=== PATIENT | female | born 1935 | race Two or more races ===

== ENCOUNTER → 2016-05-27 | Outpatient (CLI) | payer MEDICARE, MEDICAID ==
--- NOTE | 2016-05-27 11:39 | RADRPT ---
PROCEDURE: XR left knee. CLINICAL INDICATION: Knee pain TECHNIQUE: AP weightbearing, PA weightbearing, lateral weightbearing and sunrise views are availab le for review. COMPARISON: None available FINDINGS: There is severe osteoarthrosis involving the medial tibial femoral compartment, moderate to severe o steoarthrosis involving the lateral tibial femoral compartment and mild to moderate osteoarthrosis i nvolving the patellofemoral compartment. This is associated with joint space narrowing, subchondral sclerosis and osteophytosis. There is a small suprapatellar joint effusion. There is otherwise normal mineralization, architecture and alignment. No fractures are identified. No osseous lesions are identified. The soft tissues are unremarkable. IMPRESSION: Severe osteoarthrosis involving the medial tibial femoral compartment, moderate to severe osteoarthr osis involving the lateral tibial femoral compartment and mild to moderate osteoarthrosis involving the patellofemoral compartment. Small suprapatellar joint effusion RPTAT: HGDB .Johann Hernandez MD, Date Time Electronically viewed and signed by .Johann Hernandez MD, on 05/27/2016 11:39 .B/
== END | disposition home or self-care (01) ==
LOC: HKI 10:44
PROVIDERS: ATTEND Orthopaedic Surgery
DX: M17.0 Bilateral primary osteoarthritis of knee (principal)
CPT/HCPCS: 73564; G0463

== ENCOUNTER → 2016-06-26 | Outpatient (CLI) | payer MEDICARE, MEDICAID ==
--- NOTE | 2016-06-26 16:22 | RADRPT ---
PROCEDURE: Limited x-ray of both lower extremities. CLINICAL INDICATION: Bilateral leg pain. TECHNIQUE: Single frontal view of both lower extremities was obtained from the hips to the calves. COMPARISON: None. FINDINGS: There are mild degenerative changes of the hips with osteophytes noted. There are degenerative oconnor ges of the lower lumbar spine with disk space narrowing and osteophytes. There are severe degenerat ko changes of both knees with osteophytes, medial joint compartment narrowing, subarticular scleros is, deformity, and bilateral varus deformity. Right is worse than left. IMPRESSION: 1. Degenerative changes of the hips and knees as described above. RPTAT: QQ .Castro Wallace MD, MD Date Time Electronically viewed and signed by .Castro Wallace MD, on 06/26/2016 16:22 .R/
== END | disposition home or self-care (01) ==
LOC: HKI 10:24
PROVIDERS: ATTEND Orthopaedic Surgery
DX: Z01.818 Encounter for other preprocedural examination (principal); M17.0 Bilateral primary osteoarthritis of knee; M25.562 Pain in left knee
CPT/HCPCS: 77073; G0463

== ENCOUNTER 2016-07-02 06:46 | Inpatient (IN) | payer MEDICARE, OTHER ==
[2016-07-02] VITALS (24 sets, daily range): BP systolic 81–156; BP diastolic 58–98; PULSE 76–119; RESP 12–23; Ht 149.9 cm; Wt 75.0 kg
[~2016-07-02] VITALS: Ht 149.9 cm; Wt 75.0 kg
[2016-07-02] MEDS ORDERED: LIDOCAINE 2% (SDV) 5 ML INJ ONE (07:00)
[2016-07-02] MEDS ORDERED: PROPOFOL 200 MG INJ ONE (07:00)
[2016-07-02] MEDS ORDERED: DEXL60CA2 PO (07:43)
[2016-07-02] MEDS ORDERED: FESO4TAB PO (07:43)
[2016-07-02] MEDS ORDERED: VALS160T20 PO (07:44)
[2016-07-02] MEDS ORDERED: CELE200C PO (07:44)
[2016-07-02] MEDS ORDERED: CLON-429 PO (07:45)
[2016-07-02] MEDS ORDERED: DOCU-144 PO (07:46)
[2016-07-02] MEDS ORDERED: TRAM-40 PO (07:47)
[2016-07-02] MEDS ORDERED: ACET-141 PO (07:49)
[2016-07-02] MEDS ORDERED: PROP30DR BOTH EYES (07:49)
[2016-07-02] MEDS ORDERED: PREG50CA PO (07:50)
[2016-07-02] MEDS ORDERED: MULTI PO (07:50)
[2016-07-02] MEDS ORDERED: POLY17PO6 PO (07:52)
[2016-07-02] MEDS ORDERED: DICL100G37 TOP (07:52)
[2016-07-02] MEDS ORDERED: ZOLP5TAB PO (07:53)
[2016-07-02] MEDS ORDERED: PREGABALIN 300 MG PO X1 PO ONE (08:30)
[2016-07-02] MEDS ORDERED: TRANEXAMIC ACID 680 MG in SOD CHLORIDE 0.9% 93.2 ML IV ONE (08:30)
[2016-07-02] MEDS ORDERED: CELECOXIB 400 MG PO X1 DOSE PO ONE (08:30)
[2016-07-02] MEDS ORDERED: oxyCODONE (CR) 10 MG TAB [oxyCONTIN] X1 DOSE PO ONE (08:30)
[2016-07-02] MEDS ORDERED: CEFAZOLIN 2GM/50 ML (PMX) 50 ML X1 BEFORE INCISION IVPB ONE (08:30)
[2016-07-02] MEDS: LACTATED RINGER'S 1,000 ML IV SCH ×2 (08:30→18:30)
[2016-07-02] MEDS ORDERED: traMADOL 50 MG TAB X 1 DOSE PO ONE (08:30)
[2016-07-02] MEDS ORDERED: ROCURONIUM 50 MG INJ ONE (08:45)
[2016-07-02] MEDS ORDERED: MIDAZOLAM 1 MG/ML 2 ML INJ ONE (08:45)
[2016-07-02] MEDS ORDERED: FENTAnyl 50 MCG/ML VIAL ONE (08:45)
[2016-07-02] MEDS ORDERED: ONDANSETRON 4 MG INJ ONE (08:45)
[2016-07-02] MEDS ORDERED: GLYCOPYRROLATE 0.4 MG INJ ONE (08:45)
[2016-07-02] MEDS ORDERED: CEFAZOLIN 1 GM INJ ONE ×2 (08:45→11:20)
[2016-07-02] MEDS ORDERED: NEOSTIGMINE 3 MG/3 ML SYRINGE ONE (08:45)
[2016-07-02] MEDS ORDERED: DEXAMETHASONE 4 MG/ML 1 ML INJ ONE (08:45)
--- NOTE | 2016-07-02 09:54 | HPN ---
Date/Time of Note Date/Time of Note DATE: 07/02/16 TIME: 09:54 Interval H&P Admission Note Pt. seen H&P reviewed: No system changes No change from H&P on 06/25/16 by PATY Vera MD Jul 02, 2016 09:54
[2016-07-02] MEDS ORDERED: POLYMYXIN B 500000 UNIT INJ ONE (09:56)
[2016-07-02] MEDS ORDERED: SODIUM CL BACTERIOSTATIC 30 ML INJ ONE (09:56)
[2016-07-02] MEDS ORDERED: VANCOMYCIN 1 GM INJ ONE (09:56)
[2016-07-02] MEDS ORDERED: EXPAREL NOTE (BUPIVICAINE LIPOSOMAL) XX SCH (10:00)
[2016-07-02] MEDS ORDERED: TRANEXAMIC ACID 680 MG in SOD CHLORIDE 0.9% 100 ML IVPB ONE (10:00)
[2016-07-02] MEDS ORDERED: BUPIVACAINE LIPOSOME/PF 266 MG/20 ML VIAL INFIL ONE (10:00)
[2016-07-02] MEDS ORDERED: PAIN COCKTAIL-CEFUROXIME IRR ONE ×7 (10:00)
[2016-07-02] MEDS ORDERED: PROPOFOL 100 ML ONE (11:11)
[2016-07-02] MEDS ORDERED: LABETALOL HCL 20MG INJ IV PRN (11:30)
[2016-07-02] MEDS ORDERED: DIPHENHYDRAMINE 50 MG INJ IV PRN (11:30)
[2016-07-02] MEDS ORDERED: HYDROmorphONE (0.2 MG/ML) 10ML SYG IV PRN ×3 (11:30)
[2016-07-02] MEDS ORDERED: FENTAnyl 50 MCG/ML VIAL IV PRN ×3 (11:30)
[2016-07-02] MEDS ORDERED: TRIMETHOBENZAMIDE 100 MG/ML VIAL IM PRN (11:30)
[2016-07-02] MEDS ORDERED: ONDANSETRON 4 MG INJ IV PRN ×2 (11:30→13:30)
[2016-07-02] MEDS ORDERED: MIDAZOLAM 1 MG/ML 2 ML INJ IV PRN (11:30)
[2016-07-02] MEDS ORDERED: hydrALAzine 20 MG INJ IV PRN (11:30)
[2016-07-02] MEDS ORDERED: MEPERIDINE 25 MG INJ IV PRN (11:30)
[2016-07-02] MEDS ORDERED: EPHEDrine SULFATE 50 MG/5 ML SYG IV PRN (11:30)
[2016-07-02] MEDS ORDERED: PHENYLephrine (100 MCG/ML) 5ML SYG ONE (12:46)
--- NOTE | 2016-07-02 13:24 | OPR ---
Date/Time of Note Date/Time of Note DATE: 07/02/16 TIME: 13:23 Operative Report Free Text/Dictation Dictatin # [id number] Procedure Date: Jul 02, 2016 Preoperative Diagnosis Left Knee OA Postoperative Diagnosis Same Operation Performed Left TKA Surgeon: PATY PARKER MD assistant oceanographer: MELANIA CRAIN PA-C Anesthesia: general, spinal Anesthesiologist: Tom Gayle M.D. Tourniquet Time: 92 min Estimated Blood Loss: 50 - 100 ml's Specimens Bone and soft tissue Tubes/Drains Hemovac x 1 Complications: None Pt Condition Post Procedure: stable Disposition: PACU PATY PARKER MD Jul 02, 2016 13:24
[2016-07-02] MEDS ORDERED: MAGNESIUM HYDROXIDE 30ML CUP PO PRN (13:30)
[2016-07-02] MEDS ORDERED: BISACODYL 10 MG SUPP PR PRN (13:30)
[2016-07-02] MEDS ORDERED: DIPHENHYDRAMINE 25 MG CAP PO PRN (13:30)
[2016-07-02] MEDS ORDERED: NA PHOSPHATE/BIPHOS 133 ML ENEMA PR PRN (13:30)
[2016-07-02] MEDS ORDERED: oxyCODONE 5 MG TAB PO PRN ×2 (13:30)
[2016-07-02] MEDS ORDERED: clonAZEPAM 0.5 MG TAB PO PRN (13:30)
[2016-07-02] MEDS ORDERED: NACL 0.9% 3 ML SYG IV SCH (13:30)
[2016-07-02] MEDS ORDERED: ASPIRIN (EC) 325 MG TAB PO ONE (13:30)
[2016-07-02] MEDS ORDERED: HYDROmorphONE 1 MG/ML SYG IV PRN (13:30)
--- NOTE | 2016-07-02 13:44 | PN ---
Date/Time of Note Date/Time of Note DATE: 07/02/16 TIME: 13:41 Assessment/Plan Lines/Catheters IV Catheter Type (from Nrsg): Peripheral IV Assessment/Plan Assessment/Plan Stable in PACU, s/p left TKA -continue abx until drain removed -pain meds as needed -ASA/SCDs -continue levaquin for URI treated pre-operatively -OOB with PT -monitor drain -check AM labs -d/c maya in AM XR of the left knee show good alignment with no fracture or dislocation identified Subjective 24 Hr Interval Summary Stable in PACU. Moving all extremities. Denies pain. Drowsy from anesthesia. Exam/Review of Systems Vital Signs Vitals Vital Signs Date Time Temp Pulse Resp B/P Pulse Ox O2 Delivery O2 Flow Rate FiO2 07/02/16 08:46 98.3 76 18 149/ 98 Room Air Exam Free Text/Dictation Hemovac: minimal Dressing dry Incision clean, dry, and intact without redness or drainage Thigh soft 5/5 Quadriceps, Tibialis Anterior, EHL, Gastroc, Soleus, Peroneals Normal sensation Palpable DT/PT, CR <2 sec No distal edema MELANIA CRAIN PA-C Jul 02, 2016 13:43
[2016-07-02] MEDS ORDERED: BACITRACIN 50000 UNITS INJ ONE (13:48)
[2016-07-02] MEDS: traMADol 50 MG TAB PO SCH ×2 (14:12→18:37)
[2016-07-02] MEDS: CEFAZOLIN 2 GM/50 ML (PMX) 50 ML IVPB SCH ×2 (14:13→21:25)
[2016-07-02 15:11] LABS: HEMATOCRIT 40.8 % (37.0-47.0); HEMOGLOBIN 12.6 g/dl (12.0-16.0)
--- NOTE | 2016-07-02 15:17 | RADRPT ---
PROCEDURE: XR Left Knee. CLINICAL INDICATION: Left knee pain. Postop. TECHNIQUE: Two views. Frontal and lateral. COMPARISON: 05/27/2016. FINDINGS: There is no fracture or dislocation. Anterior skin felisa and surgical drains are noted. There is gas in the soft tissues from the rece nt surgery. There is a total left knee arthroplasty which appears satisfactory. There is no lytic or blastic lesion. There is no joint effusion. IMPRESSION: 1. Satisfactory postoperative appearance of the left knee. RPTAT: QQ .Castro Wallace MD, MD Date Time Electronically viewed and signed by .Castro Wallace MD, MD on 07/02/2016 15:17 .R/
[2016-07-02 15:34] LABS: CREATININE 0.76 mg/dl (0.44-1.00); POTASSIUM 3.5 mmol/L (3.5-5.1)
[2016-07-02 15:35] LABS: CALCIUM 8.7 mg/dl (8.4-10.2)
[2016-07-02] MEDS ORDERED: TRANEXAMIC ACID 750 MG in SOD CHLORIDE 0.9% 100 ML IVPB ONE ×2 (16:30→19:30)
[2016-07-02] MEDS ORDERED: METOPROLOL 5 MG INJ IV ONE (16:30)
--- NOTE | 2016-07-02 18:27 | CONS ---
DATE OF ADMISSION: 07/02/2016 DATE OF CONSULTATION: 07/02/2016 TYPE OF CONSULTATION: POSTOPERATIVE MEDICAL CONSULTATIVE NOTE Dear Dr. Borjas: Thank you very much for allowing me to evaluate this 81-year-old female who just underwent left knee replacement. HISTORICAL EVENTS: As you well know, this patient has had progressive disabling pain involving her left knee and for this elected to proceed with surgery today. In recovery, she has comfortable and per staff, not complaining of shortness of breath, chest pain or abdominal pain. PAST MEDICAL HISTORY: Includes: 1. History of thyrotoxicosis. 2. Hypothyroidism. 3. Hypertension. 4. Hyperlipidemia. MEDICATIONS: Prior to admission: 1. Celebrex 200 per day. 2. Toviaz 4 mg per day. 3. Valsartan 160 day. 4. Klonopin 0.5 b.i.d. 5. Ambien 5 at bedtime p.r.n. 6. Xanax 0.25 p.r.n. FAMILY HISTORY: Positive for heart disease. PHYSICAL EXAMINATION: GENERAL: Comfortable-appearing female in no acute distress. VITAL SIGNS: BP 128/80, pulse 70, respirations 20, she was afebrile. EYES: Extraocular muscles were full. NOSE, MOUTH, AND THROAT: Normal. NECK: Supple. There was no jugular venous distention, thyroid enlargement or adenopathy. Carotids 2+, no bruits. LUNGS: Clear. HEART: Rhythm regular, no murmur. No third or fourth sound. ABDOMEN: Nontender. Liver and spleen were not palpable. No masses or tenderness were noted. EXTREMITIES: No edema. NEUROLOGIC: No lateralizing motor weakness. IMPRESSION: 1. Stable postop left knee replacement. 2. History of hypertension. We will continue angiotensin II receptor blockers and monitor blood pr essure throughout. PLAN: Will evaluate daily for signs and symptoms of thromboembolic disease despite appropriate deep venous thrombosis prophylaxis. Dictated By: JACKY COLEY/VMIAL Conf#: [id number] DID#: [id number]
[2016-07-02] MEDS: PANTOPRAZOLE (EC) 40 MG TAB PO SCH (18:37)
[2016-07-02] MEDS: ACETAMINOPHEN 1000MG/100ML IV 100 ML IVPB SCH ×2 (18:37→23:59)
[2016-07-02] MEDS: DOCUSATE SODIUM 100 MG CAP PO SCH ×2 (21:00→21:24)
[2016-07-02] MEDS: PREGABALIN 50 MG CAP PO SCH (21:24)
[2016-07-02] MEDS: VALSARTAN 160 MG TAB PO SCH (21:25)
[2016-07-03 00:09] VITALS: BP 113/63; RESP 18
[2016-07-03] MEDS: FESOTERODINE FUMARATE 4 MG XX SCH ×2 (00:30→19:30)
[2016-07-03] MEDS: [UNRECOGNIZED DRUG - OTHER] XX SCH ×2 (00:30→19:30)
[2016-07-03] MEDS: LACTATED RINGER'S 1,000 ML IV SCH ×7 (04:00→21:14)
[2016-07-03 05:20] LABS: HEMATOCRIT 34.9 % (37.0-47.0); HEMOGLOBIN 11.5 g/dl (12.0-16.0)
[2016-07-03 05:30] LABS: POTASSIUM 4.6 mmol/L (3.5-5.1)
[2016-07-03 05:33] LABS: CREATININE 0.71 mg/dl (0.44-1.00)
[2016-07-03] MEDS: traMADol 50 MG TAB PO SCH ×4 (05:33→18:40)
[2016-07-03] MEDS: CEFAZOLIN 2 GM/50 ML (PMX) 50 ML IVPB SCH (05:33)
[2016-07-03] MEDS: PANTOPRAZOLE (EC) 40 MG TAB PO SCH ×2 (05:33→18:40)
[2016-07-03 05:34] LABS: CALCIUM 8.5 mg/dl (8.4-10.2)
[2016-07-03 05:37] VITALS: BP 124/64; PULSE 92; RESP 18
[2016-07-03] MEDS: ACETAMINOPHEN 1000MG/100ML IV 100 ML IVPB SCH ×2 (06:06→14:23)
--- NOTE | 2016-07-03 06:55 | OPR ---
DATE OF OPERATION: 07/02/2016 PREOPERATIVE DIAGNOSIS: Left knee osteoarthritis. POSTOPERATIVE DIAGNOSIS Left knee osteoarthritis. OPERATION PERFORMED: Left Total knee arthroplasty. SURGEON: Paty Borjas MD PATIENT CASE MANAGER: RIGO Gutierrez COMPONENTS USED: DePuy Attune size 5 narrow femoral component, size 3 tibial baseplate, 8 mm polyethylene insert, and a 32 patellar button. ANESTHESIA: Spinal plus general endotracheal intubation, plus periarticular injection. ANESTHESIOLOGIST: Dr. Gayle TOURNIQUET TIME: 92 minutes. ESTIMATED BLOOD LOSS: 50 mL INTRAVENOUS FLUIDS: 2 liters of crystalloid. SPECIMENS: Bone and soft tissue. DRAINS: Hemovac x1. COMPLICATIONS: None. DISPOSITION: The patient tolerated the procedure well and was taken to the recovery room in stable condition. INDICATIONS: The patient is an 81-year-old woman who has had progressive worsening pain in the left knee with radiographic evidence of severe osteoarthritis. She has failed nonsurgical means of treatment to control her pain, including activity modifications, pain medications, intra-articular injections and ambulatory assist devices. Despite these measures, she has had worsening pain and I felt she would benefit from a total knee arthroplasty. The risks, benefits, and alternatives of the procedure were explained in detail to the patient. I explained the risks of the surgery to include but not be limited to, bleeding and possible need for blood transfusion; infection; pain; stiffness; neurovascular injury with possible numbness, weakness, and/or paralysis anywhere from the knee down to the toes; fracture; instability; dislocation; wear and/or loosening of the prosthesis and possible need for future revision; blood clots; pulmonary embolism; and anesthetic complications such as heart attack, stroke, GI bleed, pneumonia, and/or . Ample time was allowed for the patient to ask questions, all of which were addressed and answered. The patient understood the risks involved and wished to proceed. Informed consent was signed prior to the procedure. PROCEDURE: The patient's left knee was initialed with a marking pen in the preoperative area to identify the correct operative site. The patient was brought to the operating room and transferred from the [facility] to the operating table where a spinal anesthetic was administered. The patient was then anesthetized and intubated. A Grossman catheter was placed. A timeout was performed to confirm that the left leg was the correct operative site. The patient was given 2 g of Ancef within one hour prior to the procedure. A tourniquet was placed on the operative proximal thigh. The operative knee and lower extremity were prepped and draped in the usual sterile fashion. The operative lower extremity was elevated and exsanguinated with an Esmarch tourniquet. The proximal thigh tourniquet was inflated to 300 mmHg. The knee was flexed. A midline incision was made and carried down through the subcutaneous tissue and fat with sharp dissection. Limited medial and lateral flaps were raised. A median parapatellar arthrotomy approach was performed. Synovial fluid was normal in color and consistency. The patella was everted and the knee flexed. There were severe tricompartmental osteoarthritic changes noted. A medial release was performed at the joint line to the midcoronal plane. The ACL and PCL and remnants of the menisci were excised. The stepped drill was used to open up the femoral canal which was irrigated and sucked dry. The distal femoral cut was made using the [employer] computer navigation system for a 0 degree varus/valgus cut and 3 degrees of flexion. The tibia was subluxed anteriorly. The [employer] tibial cutoff jig was placed over the tibia and set for a 0 degree varus/valgus cut and 3 degrees of posterior slope. The guide was pinned into place and the oscillating saw was used to make the cut. The tibia was sized. The extension gap was checked and accommodated a 8 mm spacer block with the knee in full extension. There was no varus or valgus instability. At this point, the femur was sized with the posterior referencing guide. Two holes were drilled in 3 degrees of external rotation. The two holes were in line with the transepicondylar axis, perpendicular to [place]'s line, and in line with the tibial cutoff jig brought up with the knee flexed 90 degrees and tensed with 2 lamina spreaders, suggesting the femoral rotation was correct. The four-in-one cutting block was pinned into place. The anterior and posterior cuts and chamfer cuts were made with the oscillating saw. The flexion gap was checked and accommodated the 8 mm spacer block at 90 degrees. There was no varus or valgus instability, suggesting the flexion and extension gaps were now equal. The central box was cut out on the femur. The tibia was drilled and punched in proper rotation. Trial components were placed into position with a trial insert. The patella was cut down to 13 mm and sized. Three holes were drilled and the trial button placed in position. With all the trials now in place, the knee was taken through range of motion and came to full extension as evidenced by the fact that with the foot on my abdomen and axial loading, there was no tendency for the knee to flex. The knee was able to be flexed to 125 degrees with good patellar tracking with no lateral tilt or subluxation. At this point , I was satisfied with the overall range of motion, stability, and patellar tracking. The trials were removed. The real components were opened. Two bags of cement were mixed, one with and one without premixed antibiotic. The knee was irrigated with antibiotic saline and sucked dry. Once the cement was in a doughy stage, the real components were cemented into place. The knee was held in full extension, and the patellar component was held with a patellar clamp. All excess cement was removed with curettes. As the cement was hardening, the synovial/capsular layer was infiltrated with a mixture of 150 mg of 0.5% Bupivacaine, 8 mg of Duramorph, 300 mcg of epinephrine, 30 mg of Toradol, 100 mcg of clonidine, 750 mg of cefuroxime and 86 mL of normal saline, followed by an injection of 266 mg of liposomal Bupivacaine. A Hemovac drain was placed in the deep portion of the wound and brought out the anterolateral thigh. Once the cement was completely hardened, the trial liner was removed, and the real insert was opened. The tourniquet was let down, and there was good hemostasis. The knee was then irrigated with a mixture of Betadine/saline and then antibiotic saline with pulsatile lavage. The real insert was impacted into the tibia and reduced onto to the femur. The arthrotomy was closed with a few interrupted #1 Ethibond in a figure-of- eight fashion, and then closed in a watertight fashion with a running #2 Stratafix suture. Knee flexion was checked against gravity and came to 125 degrees. The subcutaneous layer was irrigated and closed with 2-0 Stratafix, and then 3-0 Vicryl and then felisa on the skin. The wound was covered with an occlusive dressing, and secured with cast padding and a bias dressing. The drain was secured with 3-0 nylon. The sponge and needle counts were correct at the end of the case. The patient was then awakened, extubated, and taken to the recovery room in stable condition. Dictated By: PATY KRAMER/VIMAL Conf#: [id number] DID#: [id number] MTDD
[2016-07-03 08:08] VITALS: BP_SYST 137; BP_SYST 145; BP_DIAS 67; RESP 20
--- NOTE | 2016-07-03 08:39 | PN ---
Date/Time of Note Date/Time of Note DATE: 07/03/16 TIME: 08:38 Assessment/Plan Lines/Catheters IV Catheter Type (from Nrsg): Peripheral IV Grossman in Place (from Nrsg): Yes Assessment/Plan Assessment/Plan Stable POD #1, s/p left TKA -d/c abx -drain removed -pain meds as needed -ASA/SCDs for DVT prophylaxis -OOB with PT -check AM labs -d/c planning. Will plan to go to [facility] upon discharge Subjective 24 Hr Interval Summary No acute overnight events. Denies any knee pain. Did not start PT yesterday. VSS , afebrile. Will plan to go to [facility] upon discharge. Exam/Review of Systems Vital Signs Vitals Vital Signs Date Time Temp Pulse Resp B/P Pulse Ox O2 Delivery O2 Flow Rate FiO2 07/03/16 08:08 97.6 87 20 137/67 98 07/03/16 05:37 Nasal Cannula 2.0 Intake and Output 07/02/16 07/02/16 07/03/16 15:00 23:00 07:00 Intake Total 2200 ml 157.5 ml 1930 ml Output Total 400 ml 30 ml 1210 ml Balance 1800 ml 127.5 ml 720 ml Exam Free Text/Dictation Hemovac: 40cc Dressing dry Incision clean, dry, and intact without redness or drainage Thigh soft 5/5 Quadriceps, Tibialis Anterior, EHL, Gastroc, Soleus, Peroneals Normal sensation Palpable DT/PT, CR <2 sec No distal edema Results Result Diagram: 07/03/16 0455 07/03/16 0455 MELANIA CRAIN PA-C Jul 03, 2016 08:39
--- NOTE | 2016-07-03 08:50 | CONS ---
Date/Time of Note Date/Time of Note DATE: 07/03/16 TIME: 08:48 Assessment/Plan Assessment/Plan Additional Assessment/Plan 1. Doing well post op left knee replacement, labs rev 2. BP is well controlled Consultation Date/Type/Reason Admit Date/Time Jul 02, 2016 at 06:46 Initial Consult Date Detailed Summary Respiratory: No shortness of breath Cardiovascular: No chest pain Gastrointestinal: no complaints Genitourinary: other (maya in place) Musculoskeletal: bone/joint pain (no pain left knee) Exam/Review of Systems Vital Signs Vitals Vital Signs Date Time Temp Pulse Resp B/P Pulse Ox O2 Delivery O2 Flow Rate FiO2 07/03/16 08:08 97.6 87 20 137/67 98 07/03/16 05:37 Nasal Cannula 2.0 Intake and Output 07/02/16 07/02/16 07/03/16 14:59 22:59 06:59 Intake Total 2200 ml 157.5 ml 1930 ml Output Total 400 ml 30 ml 1210 ml Balance 1800 ml 127.5 ml 720 ml Exam Neck: No jvd Respiratory: clear to auscultation Cardiovascular: regular rate and rhythm Gastrointestinal: soft Extremities: No edema (adn no calf tend) Results Result Diagram: 07/03/16 0455 07/03/16 0455 Results 24 hrs Laboratory Tests Test 07/02/16 13:58 07/03/16 04:55 Hemoglobin 12.6 11.5 L Hematocrit 40.8 34.9 L Sodium Level 143 136 Potassium Level 3.5 4.6 Chloride Level 107 105 Carbon Dioxide Level 22 25 Anion Gap 18 H 11 # Blood Urea Nitrogen 15 12 Creatinine 0.76 0.71 Glucose Level 153 126 Calcium Level 8.7 8.5 Medications Medications Current Medications Lactated Ringer's (Lr) 1,000 ml @ 100 mls/hr Q10H IV Last administered on 08:30; Admin Dose 100 MLS/HR; Start 07/02/16 at 08:30 Miscellaneous Information 1 ea NOTE XX ; Start 07/02/16 at 10:00; Stop 07/06/16 at 09:59 Clonazepam (Klonopin) 0.5 mg BID PRN PO ANXIETY; Start 07/02/16 at 13:30 Docusate Sodium (Colace) 100 mg BID PO Last administered on 07/02/16 21:24; Admin Dose 100 MG; Start 07/02/16 at 21:00 Valsartan 160 mg 160 mg BID PO Last administered on 07/02/16 21:25; Admin Dose 160 MG; Start 07/02/16 at 21:00 Lactated Ringer's (Lr) 1,000 ml @ 125 mls/hr Q8H IV Last administered on 04:00; Admin Dose 125 MLS/HR; Start 07/02/16 at 13:14 Celecoxib 200 mg 200 mg DAILY PO ; Start 07/03/16 at 09:00 Acetaminophen (Ofirmev 1000mg/ 100ml Iv) 100 ml @ 400 mls/hr Q6 IVPB Last administered on 07/03/16 06:06; Admin Dose 400 MLS/HR; Start 07/02/16 at 18:00; Stop 07/03/16 at 17:59 Tramadol HCl (Ultram) 50 mg Q6 PO Last administered on 07/03/16 05:33; Admin Dose 50 MG; Start 07/02/16 at 12:00; Stop 07/05/16 at 11:59 Oxycodone HCl (Roxicodone) 5 mg Q4H PRN PO PAIN LEVEL 1-3; Start 07/02/16 at 13: 30 Oxycodone HCl (Roxicodone) 10 mg Q4H PRN PO PAIN LEVEL 4-7; Start 07/02/16 at 13 :30 Hydromorphone HCl (Dilaudid) 1 mg Q3H PRN IV PAIN LEVEL 8-10; Start 07/02/16 at 13:30 Ondansetron HCl (Zofran Inj) 4 mg Q6H PRN IV NAUSEA AND/OR VOMITING; Start 07/02 at 13:30 Bisacodyl (Dulcolax Supp) 10 mg Q12H PRN [place] CONSTIPATION; Start 07/02/16 at 13: 30 Magnesium Hydroxide (Milk Of Mag) 30 ml BID PRN PO CONSTIPATION; Start 07/02/16 at 13:30 Sodium Biphosphate/ Sodium Phosphate (Fleet Enema) 133 ml DAILY PRN [place] CONSTIPATION; Start 07/02/16 at 13:30 Docusate Sodium (Colace) 100 mg BID PO ; Start 07/02/16 at 21:00 Diphenhydramine HCl (Benadryl) 25 mg Q6H PRN PO PRURITUS; Start 07/02/16 at 13: 30 Aspirin (Ecotrin) 325 mg BID PO ; Start 07/03/16 at 09:00 Pantoprazole (Protonix Tab) 40 mg BID@06,18 PO Last administered on 07/03/16 05 :33; Admin Dose 40 MG; Start 07/02/16 at 18:00 Pregabalin (Lyrica) 50 mg BID PO Last administered on 07/02/16 21:24; Admin Dose 50 MG; Start 07/02/16 at 21:00 Levofloxacin (Levaquin) 500 mg DAILY@06 PO ; Start 07/03/16 at 09:00; Stop at 05:59 Miscellaneous Information (*Order Clarification Bulletin) (Fesoterodine Fumarate (Toviaz... Q8H XX ; Start 07/02/16 at 16:30 JACKY NELSON MD Jul 03, 2016 08:50
[2016-07-03] MEDS ORDERED: FESOTERODINE FUMARATE 4 MG PO SCH (09:00)
[2016-07-03] MEDS: DOCUSATE SODIUM 100 MG CAP PO SCH ×4 (09:00→20:50)
[2016-07-03] MEDS ORDERED: NON-FORMULARY/PATIENT OWN MED (Dexlansoprazole (Dexilant) 60 MG) PO SCH (09:00)
[2016-07-03] MEDS: ASPIRIN (EC) 325 MG TAB PO SCH ×2 (09:28→20:50)
[2016-07-03] MEDS: PREGABALIN 50 MG CAP PO SCH ×2 (09:28→20:49)
[2016-07-03] MEDS: VALSARTAN 160 MG TAB PO SCH ×2 (09:29→20:49)
[2016-07-03] MEDS: CELECOXIB 200 MG CAP PO SCH (09:29)
[2016-07-03] MEDS: LEVOFLOXACIN 500 MG TAB PO SCH (09:32)
[2016-07-03 11:36] LABS: ADD UMIC YES; URINE BILIRUBIN (Dip) NEGATIVE (NEGATIVE); URINE BLOOD (Dip) 3+ (NEGATIVE); URINE COLOR LT. YELLOW (YELLOW); URINE GLUCOSE (Dip) NEGATIVE (NEGATIVE); URINE KETONES (Dip) NEGATIVE (NEGATIVE); URINE LEUKOCYTE ESTERASE (Dip) NEGATIVE (NEGATIVE); URINE NITRITE (Dip) NEGATIVE (NEGATIVE); URINE TOTAL PROTEIN (Dip) NEGATIVE (NEGATIVE); URINE UROBILINOGEN (Dip) 0.2 E.U./dL (0.1-1.0)
[2016-07-03 19:56] VITALS: BP 132/63; RESP 20
[2016-07-04] MEDS: LACTATED RINGER'S 1,000 ML IV SCH ×2 (00:30→05:14)
[2016-07-04] MEDS: FESOTERODINE FUMARATE 4 MG XX SCH ×3 (00:30→16:30)
[2016-07-04] MEDS: [UNRECOGNIZED DRUG - OTHER] XX SCH ×3 (00:30→16:30)
[2016-07-04] MEDS: traMADol 50 MG TAB PO SCH ×5 (00:43→23:26)
[2016-07-04] MEDS: LEVOFLOXACIN 500 MG TAB PO SCH (05:34)
[2016-07-04] MEDS: PANTOPRAZOLE (EC) 40 MG TAB PO SCH ×2 (05:34→18:23)
[2016-07-04 08:21] LABS: HEMATOCRIT 35.3 % (37.0-47.0); HEMOGLOBIN 11.3 g/dl (12.0-16.0)
[2016-07-04 08:23] VITALS: BP 122/74; RESP 18
[2016-07-04 08:43] LABS: CALCIUM 8.5 mg/dl (8.4-10.2); CREATININE 0.84 mg/dl (0.44-1.00)
[2016-07-04] MEDS: DOCUSATE SODIUM 100 MG CAP PO SCH ×4 (09:00→20:58)
[2016-07-04] MEDS: PREGABALIN 50 MG CAP PO SCH ×2 (09:47→23:27)
[2016-07-04] MEDS: CELECOXIB 200 MG CAP PO SCH (09:48)
[2016-07-04] MEDS: ASPIRIN (EC) 325 MG TAB PO SCH ×2 (09:48→20:55)
[2016-07-04] MEDS: VALSARTAN 160 MG TAB PO SCH ×2 (09:49→20:56)
--- NOTE | 2016-07-04 12:20 | CONS ---
Date/Time of Note Date/Time of Note DATE: 07/04/16 TIME: 12:18 Assessment/Plan Assessment/Plan Additional Assessment/Plan 1. Doing well post op left knee replacement, labs rev 2. BP is well controlled 3. K+ sl inc, will dc celebrex 4. UTI is not present so will dc levaquin Consultation Date/Type/Reason Admit Date/Time Jul 02, 2016 at 06:46 Detailed Summary Respiratory: No shortness of breath Cardiovascular: No chest pain Gastrointestinal: no complaints Genitourinary: no complaints Musculoskeletal: bone/joint pain (mild knee pain) Exam/Review of Systems Vital Signs Vitals Vital Signs Date Time Temp Pulse Resp B/P Pulse Ox O2 Delivery O2 Flow Rate FiO2 07/04/16 08:23 98.0 91 18 122/74 96 07/03/16 05:37 Nasal Cannula 2.0 Intake and Output 07/03/16 07/03/16 07/04/16 15:00 23:00 07:00 Intake Total 1140 ml 960 ml Output Total 900 ml 1100 ml Balance 240 ml -140 ml Exam Neck: No jvd Respiratory: clear to auscultation Cardiovascular: regular rate and rhythm Gastrointestinal: soft Extremities: edema (and no calf tend bilat) Results Result Diagram: 07/04/16 0738 07/04/16 0738 Results 24 hrs Laboratory Tests Test 07/04/16 07:38 Hemoglobin 11.3 L Hematocrit 35.3 L Sodium Level 137 Potassium Level 5.0 Chloride Level 105 Carbon Dioxide Level 30 Anion Gap 7 L Blood Urea Nitrogen 15 Creatinine 0.84 Glucose Level 99 Calcium Level 8.5 Medications Medications Current Medications Miscellaneous Information 1 ea NOTE XX ; Start 07/02/16 at 10:00; Stop 07/06/16 at 09:59 Clonazepam (Klonopin) 0.5 mg BID PRN PO ANXIETY; Start 07/02/16 at 13:30 Docusate Sodium (Colace) 100 mg BID PO Last administered on 07/04/16 09:48; Admin Dose 100 MG; Start 07/02/16 at 21:00 Valsartan (Diovan) 160 mg BID PO Last administered on 07/04/16 09:49; Admin Dose 160 MG; Start 07/02/16 at 21:00 Celecoxib (Celebrex) 200 mg DAILY PO Last administered on 07/04/16 09:48; Admin Dose 200 MG; Start 07/03/16 at 09:00 Tramadol HCl (Ultram) 50 mg Q6 PO Last administered on 07/04/16 05:35; Admin Dose 50 MG; Start 07/02/16 at 12:00; Stop 07/05/16 at 11:59 Oxycodone HCl (Roxicodone) 5 mg Q4H PRN PO PAIN LEVEL 1-3; Start 07/02/16 at 13: 30 Oxycodone HCl (Roxicodone) 10 mg Q4H PRN PO PAIN LEVEL 4-7; Start 07/02/16 at 13 :30 Hydromorphone HCl (Dilaudid) 1 mg Q3H PRN IV PAIN LEVEL 8-10; Start 07/02/16 at 13:30 Ondansetron HCl (Zofran Inj) 4 mg Q6H PRN IV NAUSEA AND/OR VOMITING; Start 07/02 at 13:30 Bisacodyl (Dulcolax Supp) 10 mg Q12H PRN [place] CONSTIPATION; Start 07/02/16 at 13: 30 Magnesium Hydroxide (Milk Of Mag) 30 ml BID PRN PO CONSTIPATION; Start 07/02/16 at 13:30 Sodium Biphosphate/ Sodium Phosphate (Fleet Enema) 133 ml DAILY PRN [place] CONSTIPATION; Start 07/02/16 at 13:30 Docusate Sodium (Colace) 100 mg BID PO ; Start 07/02/16 at 21:00 Diphenhydramine HCl (Benadryl) 25 mg Q6H PRN PO PRURITUS; Start 07/02/16 at 13: 30 Aspirin (Ecotrin) 325 mg BID PO Last administered on 07/04/16 09:48; Admin Dose 325 MG; Start 07/03/16 at 09:00 Pantoprazole (Protonix Tab) 40 mg BID@06,18 PO Last administered on 07/04/16 05 :34; Admin Dose 40 MG; Start 07/02/16 at 18:00 Pregabalin (Lyrica) 50 mg BID PO Last administered on 07/04/16 09:47; Admin Dose 50 MG; Start 07/02/16 at 21:00 Levofloxacin (Levaquin) 500 mg DAILY@06 PO Last administered on 07/04/16 05:34 ; Admin Dose 500 MG; Start 07/03/16 at 09:00; Stop 07/10/16 at 05:59 Miscellaneous Information (*Order Clarification Bulletin) (Fesoterodine Fumarate (Toviaz... Q8H XX ; Start 07/02/16 at 16:30 JACKY NELSON MD Jul 04, 2016 12:20
--- NOTE | 2016-07-04 15:41 | PN ---
Date/Time of Note Date/Time of Note DATE: 07/04/16 TIME: 15:39 Assessment/Plan Lines/Catheters IV Catheter Type (from Nrsg): Saline Lock Grossman in Place (from Nrsg): No Assessment/Plan Assessment/Plan Stable POD #2, s/p left TKA -pain meds as needed -ASA/SCDs for DVT prophylaxis -OOB with PT -check AM labs -dressing changed -will plan to transfer to [facility] tomorrow Subjective 24 Hr Interval Summary No acute overnight events. Denies pain. Progressing very nicely with PT. Will plan to go to [facility] tomorrow. Exam/Review of Systems Vital Signs Vitals Vital Signs Date Time Temp Pulse Resp B/P Pulse Ox O2 Delivery O2 Flow Rate FiO2 07/04/16 08:23 98.0 91 18 122/74 96 07/03/16 05:37 Nasal Cannula 2.0 Intake and Output 07/03/16 07/03/16 07/04/16 15:00 23:00 07:00 Intake Total 1140 ml 960 ml Output Total 900 ml 1100 ml Balance 240 ml -140 ml Exam Free Text/Dictation Dressing dry Incision clean, dry, and intact without redness or drainage Thigh soft 5/5 Quadriceps, Tibialis Anterior, EHL, Gastroc, Soleus, Peroneals Normal sensation Palpable DT/PT, CR <2 sec No distal edema Results Result Diagram: 07/04/16 0738 07/04/16 0738 MELANIA CRAIN PA-C Jul 04, 2016 15:41
--- NOTE | 2016-07-04 15:43 | PDOCDIS ---
Discharge Instructions DIAGNOSIS Discharge Diagnosis: s/p left TKA CONDITION Patient Condition: Good HOME CARE INSTRUCTIONS: Diet Instructions: Regular ACTIVITY: Activity Restrictions: Slowly Increase Activity Rest between Activity Avoid heavy lifting Do not Drive Do not operate Machinery Do not operate Power Tool Avoid Heavy Housework Keep Limb Elevated Bathing Restrictions: Shower FOLLOW UP/APPOINTMENTS Appointments follow up in the office on 07/12/16 OTHER ORDERS: Other Orders: S/P TKA Physical Therapy: Three times per week at home x 2 weeks Daily in Rehab/SNF WB STATUS: WBAT 1. Strengthening exercises for both upper and un-operated lower extremities. 2. Gait training with front wheeled walker 3. Active range of motion exercises to operative knee. 4. When not working on knee range of motion exercises, distal towel roll under operative ankle/distal calf to promote full extension. 5. DO NOT PUT ANYTHING BEHIND OPERATIVE KNEE!!! 6. Quadriceps and hamstring strengthening. 7. May switch to cane in contra lateral hand 6 weeks after surgery. 8. Physical Therapy can open case if nursing is not available. 9. Use Ice Machine as instructed from date of surgery while at rest 3X/day. 10. Patient requires mobile SCDs to reduce risk of developing DVT following TKA. Patient will use the mobile SCDs for 30 days postoperatively. Bathing assistance by home health aide twice weekly if Medicare patient. Occupational Therapy: Evaluation for assistive devices and ADL training. Wound Care: Keep incision dry & covered with Tegaderm until first visit with Dr. Borjas Anticoagulation Orders: Enteric Coated Aspirin 325 mg po bid x 6 weeks from date of surgery Follow-up:Call for an appointment with Dr. Borjas in 1 week after discharged from hospital at DME Orders: FWLeatha, 3-in-1 Commode, Polar ice machine, Mobile SCDs MELANIA CRAIN PA-C Jul 04, 2016 15:43
[2016-07-04 20:24] VITALS: BP 139/73; RESP 20
[2016-07-05] MEDS: FESOTERODINE FUMARATE 4 MG XX SCH (00:30)
[2016-07-05] MEDS: [UNRECOGNIZED DRUG - OTHER] XX SCH (00:30)
[2016-07-05] MEDS: PANTOPRAZOLE (EC) 40 MG TAB PO SCH (05:23)
[2016-07-05] MEDS: traMADol 50 MG TAB PO SCH (05:24)
[2016-07-05 05:51] LABS: HEMATOCRIT 34.7 % (37.0-47.0); HEMOGLOBIN 11.2 g/dl (12.0-16.0)
[2016-07-05 06:31] LABS: CREATININE 0.84 mg/dl (0.44-1.00)
[2016-07-05 06:32] LABS: CALCIUM 8.5 mg/dl (8.4-10.2)
[2016-07-05 08:34] VITALS: BP 133/71; RESP 18
[2016-07-05] MEDS: DOCUSATE SODIUM 100 MG CAP PO SCH ×2 (08:40→08:41)
[2016-07-05] MEDS: PREGABALIN 50 MG CAP PO SCH (08:40)
[2016-07-05] MEDS: ASPIRIN (EC) 325 MG TAB PO SCH (08:41)
[2016-07-05] MEDS: VALSARTAN 160 MG TAB PO SCH (08:41)
--- NOTE | 2016-07-05 08:56 | PN ---
Date/Time of Note Date/Time of Note DATE: 07/05/16 TIME: 08:55 Assessment/Plan Lines/Catheters IV Catheter Type (from Nrsg): Saline Lock Grossman in Place (from Nrsg): No Assessment/Plan Assessment/Plan Stable POD #3, s/p left TKA -pain meds as needed -ASA/SCDs for DVT prophylaxis -OOB with PT -dressing changed -transfer to [facility] today -follow up in the office in 1 week Subjective 24 Hr Interval Summary No acute overnight events. Complaining of mild knee pain. VSS, afebrile. Will plan to transfer to [facility] today. Exam/Review of Systems Vital Signs Vitals Vital Signs Date Time Temp Pulse Resp B/P Pulse Ox O2 Delivery O2 Flow Rate FiO2 07/05/16 08:34 98.2 96 18 133/71 98 07/03/16 05:37 Nasal Cannula 2.0 Intake and Output 07/04/16 07/04/16 07/05/16 15:00 23:00 07:00 Intake Total 900 ml 480 ml Output Total 1600 ml 900 ml Balance -700 ml -420 ml Exam Free Text/Dictation Dressing dry Incision clean, dry, and intact without redness or drainage Thigh soft 5/5 Quadriceps, Tibialis Anterior, EHL, Gastroc, Soleus, Peroneals Normal sensation Palpable DT/PT, CR <2 sec No distal edema Results Result Diagram: 07/05/16 0413 07/05/16 0413 MELANIA CRAIN PA-C Jul 05, 2016 08:56
--- NOTE | 2016-07-05 10:25 | CONS ---
Date/Time of Note Date/Time of Note DATE: 07/05/16 TIME: 10:22 Assessment/Plan Assessment/Plan Chief Complaint/Hosp Course 1. She is 3 days postop a left total knee replacement. She is doing well and is going to be transferred to the [facility] today. Problems: Consultation Date/Type/Reason Admit Date/Time Jul 02, 2016 at 06:46 Initial Consult Date 24 HR Interval Summary Free Text/Dictation She feels well Constitutional: improved, no complaints Exam/Review of Systems Vital Signs Vitals Vital Signs Date Time Temp Pulse Resp B/P Pulse Ox O2 Delivery O2 Flow Rate FiO2 07/05/16 08:34 98.2 96 18 133/71 98 07/03/16 05:37 Nasal Cannula 2.0 Intake and Output 07/04/16 07/04/16 07/05/16 15:00 23:00 07:00 Intake Total 900 ml 480 ml Output Total 1600 ml 900 ml Balance -700 ml -420 ml Exam Constitutional: alert Respiratory: clear to auscultation, normal air movement Cardiovascular: regular rate and rhythm Musculoskeletal: nl extremities to inspection Results Result Diagram: 07/05/16 0413 07/05/16 0413 Results 24 hrs Laboratory Tests Test 07/05/16 04:13 Hemoglobin 11.2 L Hematocrit 34.7 L Sodium Level 139 Potassium Level 4.0 Chloride Level 101 Carbon Dioxide Level 29 Anion Gap 13 Blood Urea Nitrogen 16 Creatinine 0.84 Glucose Level 105 Calcium Level 8.5 Medications Medications Current Medications Miscellaneous Information 1 ea NOTE XX ; Start 07/02/16 at 10:00; Stop 07/06/16 at 09:59 Clonazepam (Klonopin) 0.5 mg BID PRN PO ANXIETY; Start 07/02/16 at 13:30 Docusate Sodium (Colace) 100 mg BID PO Last administered on 07/05/16 08:40; Admin Dose 100 MG; Start 07/02/16 at 21:00 Valsartan (Diovan) 160 mg BID PO Last administered on 07/05/16 08:41; Admin Dose 160 MG; Start 07/02/16 at 21:00 Tramadol HCl (Ultram) 50 mg Q6 PO Last administered on 07/05/16 05:24; Admin Dose 50 MG; Start 07/02/16 at 12:00; Stop 07/05/16 at 11:59 Oxycodone HCl (Roxicodone) 5 mg Q4H PRN PO PAIN LEVEL 1-3; Start 07/02/16 at 13: 30 Oxycodone HCl (Roxicodone) 10 mg Q4H PRN PO PAIN LEVEL 4-7; Start 07/02/16 at 13 :30 Hydromorphone HCl (Dilaudid) 1 mg Q3H PRN IV PAIN LEVEL 8-10; Start 07/02/16 at 13:30 Ondansetron HCl (Zofran Inj) 4 mg Q6H PRN IV NAUSEA AND/OR VOMITING; Start 07/02 at 13:30 Bisacodyl (Dulcolax Supp) 10 mg Q12H PRN HI CONSTIPATION; Start 07/02/16 at 13: 30 Magnesium Hydroxide (Milk Of Mag) 30 ml BID PRN PO CONSTIPATION Last administered on 07/05/16 05:24; Admin Dose 30 ML; Start 07/02/16 at 13:30 Sodium Biphosphate/ Sodium Phosphate (Fleet Enema) 133 ml DAILY PRN HI CONSTIPATION; Start 07/02/16 at 13:30 Docusate Sodium (Colace) 100 mg BID PO ; Start 07/02/16 at 21:00 Diphenhydramine HCl (Benadryl) 25 mg Q6H PRN PO PRURITUS; Start 07/02/16 at 13: 30 Aspirin (Ecotrin) 325 mg BID PO Last administered on 07/05/16 08:41; Admin Dose 325 MG; Start 07/03/16 at 09:00 Pantoprazole (Protonix Tab) 40 mg BID@,18 PO Last administered on 07/05/16 05 :23; Admin Dose 40 MG; Start 07/02/16 at 18:00 Pregabalin (Lyrica) 50 mg BID PO Last administered on 07/05/16 08:40; Admin Dose 50 MG; Start 07/02/16 at 21:00 Miscellaneous Information (*Order Clarification Bulletin) (Fesoterodine Fumarate (Toviaz... Q8H XX ; Start 07/02/16 at 16:30 RAMÍREZ CARDOSO MD Jul 05, 2016 10:25
--- NOTE | 2016-07-05 11:58 | DS ---
DATE OF ADMISSION: 07/02/2016 DATE OF DISCHARGE: 07/05/2016 CONDITION ON DISCHARGE: Stable ADMITTING DIAGNOSIS: Left knee osteoarthritis. DISCHARGE DIAGNOSIS: Status post left total knee arthroplasty. PROCEDURE PERFORMED: Left total knee arthroplasty. HOSPITAL COURSE: This is an 81-year-old female who was seen in the clinic initially complaining of left knee pain. X-rays were obtained and demonstrated advanced osteoarthritis of the left knee and it was thought she would benefit from a left total knee arthroplasty. On 07/02/2016, the patient was admitted and taken to the operating room where she underwent a left total knee arthroplasty. There were no intraoperative complications. The patient tolerated the procedure well. She was taken to the recovery room in stable condition. Pain was well controlled with oral pain medication. She was started on aspirin and SCDs for DVT prophylaxis. She remained hemodynamically stable and neurovascularly intact throughout her hospital stay. She began physical therapy on postoperative day 1 and was deemed stable for discharge on postoperative day 3. Prior to discharge, the incision was inspected and noted to be clean, dry and intact. Dressing changes were done prior to patient going to the [facility]. LABORATORY ANALYSIS: Hemoglobin 11.2, hematocrit 34.7. Chemistry panel was within normal limits. DISCHARGE MEDICATIONS: 1. Miller 5/325 mg. 2. Tramadol 50 mg. 3. Aspirin 325 mg. 4. Protonix 40 mg. 5. Lyrica 50 mg. Additionally, the patient is to resume all her normal home medications. DISCHARGE INSTRUCTIONS: The patient was transferred to the [facility] in stable condition. She is to resume a normal diet. Activity includes weightbearing as tolerated on the left lower extremity. She will begin physical therapy at the [facility]. She will be transferred with the medications noted above and is to resume all her normal home medications. The patient is to call the office or go to the emergency room for any concerns including increased redness, swelling, drainage, fever or any concern regarding the operation or site of incision. FOLLOW UP: The patient is to follow up in the office on 07/12/2016. Dictated By: MELANIA FORBES/VIMAL Conf#: [id number] DID#: [id number] [facility]ITAL[facility]
== END 2016-07-05 15:20 | DRG 470 ==
LOC: REC 06:46 → MS1 18:03
PROVIDERS: ADMIT Orthopaedic Surgery; ATTEND Orthopaedic Surgery
PROC: 0SRD0J9 Replacement of Left Knee Joint with Synthetic Substitute, Cemented, Open Approach (ICD-10-PCS; principal; 2016-07-02 10:00)
DX: M17.12 Unilateral primary osteoarthritis, left knee (principal); I10 Essential (primary) hypertension; I25.10 Atherosclerotic heart disease of native coronary artery without angina pectoris
CPT/HCPCS: 73560; 80048; 81001; 81003; 85014; 85018; 86850; 86900; 86901; 86920; 87081; 87086; 88304; 88311; 97110; 97116; 97162; 97166; 97530; Z7610; C1776; C9290; J0131; J0171; J0690; J0697; J0735; J1100; J1170; J1885; J2250; J2274; J2370; J2405; J2710; J3010; J3370; J7120

== ENCOUNTER → 2016-07-12 | Outpatient (CLI) | payer MEDICARE, MEDICAID ==
[~2016-07-12] MED LIST: ACET-141 PO; CELE200C PO; CLON-429 PO; DEXL60CA2 PO; DICL100G37 TOP; DOCU-144 PO; FESO4TAB PO; MULTI PO; POLY17PO6 PO; PREG50CA PO; PROP30DR BOTH EYES; TRAM-40 PO; VALS160T20 PO; ZOLP5TAB PO
--- NOTE | 2016-07-12 12:10 | HKNOTE ---
DATE OF SERVICE: 07/12/2016 INTERVAL HISTORY: The patient presents today for her first postoperative evaluation on her left knee. She is 10 days status post left total knee arthroplasty. She is doing satisfactory overall. She is at the [facility]. She is having some pain and ecchymosis postoperatively. She has been taking the aspirin twice daily for DVT prophylaxis. She has been doing physical therapy twice a day, but states her leg feels swollen and stiff. She presents today for her first postoperative evaluation. She was seen with her son here in the office today. PHYSICAL EXAMINATION: Today, she is alert and oriented x4 and in no acute distress. Exam of the incision demonstrates it to be clean, dry, and intact. Range of motion is 0 to 75 degrees. She has some ecchymosis along the medial aspect of the incision as well as the posterior aspect of her leg. Varus and valgus forces are stable. There is no erythema, warmth, or effusion noted. Compartments are soft. Homans sign is negative. She is neurovascularly intact distally. IMAGING: X-rays from the [facility] demonstrate good anatomic alignment with no fractures or dislocations identified. ASSESSMENT: Ten days status post left total knee arthroplasty. PLAN: The felisa were removed today and Steri-Strips were applied. She is to continue aspirin twice daily for DVT prophylaxis. I encouraged her to increase her range of motion exercises to prevent arthrofibrosis. This will to improve her overall knee functioning and decrease her pain. Orders were given to the [facility] to increase range of motion exercises as tolerated. We will arrange for outpatient physical therapy now so there are no lapses in her PT when she is discharged home from the [facility]. We will see her back in 4 weeks for repeat evaluation. Dictated By: MELANIA SIERRA for PATY FORBES/VIMAL Conf#: [id number] DID#: [id number] AUDRE[facility]
== END | disposition home or self-care (01) ==
LOC: HKI 09:59
PROVIDERS: ATTEND Orthopaedic Surgery
DX: Z47.1 Aftercare following joint replacement surgery (principal); Z96.652 Presence of left artificial knee joint

== ENCOUNTER → 2016-07-26 | Outpatient (CLI) | payer MEDICARE, MEDICAID ==
--- NOTE | 2016-07-26 12:32 | HKNOTE ---
DATE OF SERVICE: 07/26/2016 INTERVAL HISTORY: The patient presents today for a postoperative followup evaluation on her left kn ee. She is approximately 3 weeks status post left total knee arthroplasty. She was at the [facility] and was discharged home 2 days ago. Since then she has been doing home health physical therapy and having increasing pain to her left knee. She called the office yesterda y and was concerned about her knee and was planning on going to the emergency room. We decided to s ee her in the office today for a followup evaluation. The patient has not been taking her pain medi cation that was prescribed. She has been taking ibuprofen only instead. Additionally, she has not been taking the aspirin that was recommended for DVT prophylaxis. She is here today for a followup evaluation and a recheck on her left knee. PHYSICAL EXAMINATION GENERAL: Today, she is alert and oriented x4, and in no acute distress. EXTREMITIES: Exam of the knee demonstrates the range of motion to be 5-95 degrees. She has mild ef fusion. There is no erythema or warmth noted. The incision is clean, dry and well healing. She do es have some pitting edema of the left lower extremity distally. Homans sign is negative. Compartm ents are otherwise soft. Varus and valgus forces are stable. She is neurovascularly intact distall y. ASSESSMENT: Three weeks status post left total knee arthroplasty, with some increased pain after [facility] PT. PLAN: Clinically the left knee appears to be doing well overall. There are no signs of infection. The wound is clean, dry and intact. It is well healed at this point. She does have some swelling distally, which is likely postoperative swelling. However, given the fact that she has not been donna ing any aspirin as recommended we will send her to get a Doppler of the left lower extremity to rule out a DVT. I encouraged the patient to take the pain medicine that she was prescribed, which will help alleviate some of her pain. Additionally, she should resume aspirin 325 mg, 1 tab twice daily for 6 weeks from the date of surgery for DVT prophylaxis. We will follow up on the ultrasound resul ts, but if it is negative will see her back at her next routine postoperative visit. Dictated By: MELANIA FORBES/VIMAL Conf#: [id number] [facility]#: [id number]
== END | disposition home or self-care (01) ==
LOC: HKI 10:48
PROVIDERS: ATTEND Orthopaedic Surgery
DX: Z47.1 Aftercare following joint replacement surgery (principal); Z96.652 Presence of left artificial knee joint

== ENCOUNTER → 2016-08-16 | Outpatient (CLI) | payer MEDICARE, MEDICAID | END | disposition home or self-care (01) | LOC: HKI 10:27 | PROVIDERS: ATTEND Orthopaedic Surgery | DX: Z09 Encounter for follow-up examination after completed treatment for conditions other than malignant neoplasm (principal); I10 Essential (primary) hypertension; G47.00 Insomnia, unspecified; Z96.652 Presence of left artificial knee joint ==

== ENCOUNTER → 2016-09-27 | Outpatient (CLI) | payer MEDICARE, MEDICAID ==
--- NOTE | 2016-09-27 12:33 | RADRPT ---
PROCEDURE: Left knee radiographs. CLINICAL INDICATION: Left knee pain. Postop. TECHNIQUE: Three views. Weight bearing. Frontal, lateral, and patellar view. COMPARISON: 07/02/2016. FINDINGS: There is no fracture or dislocation. Anterior skin felisa and surgical drain have been removed. There is a total left knee arthroplasty which appears satisfactory. There is no lytic or blastic lesion. There is no joint effusion. IMPRESSION: 1. Satisfactory postoperative appearance of the left knee. RPTAT: QQ .Castro Wallace MD, MD Date Time Electronically viewed and signed by .Castro Wallace MD, MD on 09/27/2016 12:33 .R/
== END | disposition home or self-care (01) ==
LOC: HKI 09:25
PROVIDERS: ATTEND Orthopaedic Surgery
DX: Z47.1 Aftercare following joint replacement surgery (principal); Z96.652 Presence of left artificial knee joint; M25.562 Pain in left knee

== ENCOUNTER → 2016-11-01 | Outpatient (CLI) | payer MEDICARE, MEDICAID ==
[~2016-11-01] MED LIST changes: +ASPI325T32 PO; +HYDR-3605 PO; +HYDR-906 PO; +PANT40TA4 PO; +SERT50TA PO; +TRAM50TA2 PO
--- NOTE | 2016-11-01 15:26 | RADRPT ---
PROCEDURE: Chest radiograph. CLINICAL INDICATION: Preoperative examination. TECHNIQUE: Single portable frontal view. COMPARISON: None relevant listed. FINDINGS: Mild vascular crowding at the lung bases. No pleural effusion or focal parenchymal opacity. The cardiomediastinal silhouette is normal. No suspicious bone lesion. Rounded densities project over the right upper quadrant and left lower quadrant of the abdomen and m ay represent calcifications. IMPRESSION: No acute cardiopulmonary abnormality. RPTAT: PP Physician Angela Date Time Electronically viewed and signed by Ashli Rubio Physician on 11/01/2016 15:26 LG/
--- NOTE | 2016-11-01 16:05 | RADRPT ---
PROCEDURE: Right knee radiographs. CLINICAL INDICATION: Right knee pain. TECHNIQUE: Four views. Weight bearing. Frontal, lateral, oblique, and patellar view. COMPARISON: No prior studies are available for comparison. FINDINGS: There is no fracture or dislocation. The soft tissues are normal. There is diffuse osteopenia. There are degenerative changes with osteophytes arising from all 3 joint compartment margins. There is medial joint compartment narrowing, subarticular sclerosis, and deformity. There is varus defor mity. There is no lytic or blastic lesion. There is no radiopaque foreign body. IMPRESSION: 1. Diffuse osteopenia. 2. Severe degenerative change with varus deformity. RPTAT: QQ .Castro Wallace MD, MD Date Time Electronically viewed and signed by .Castro Wallace MD, on 11/01/2016 16:05 .R/
--- NOTE | 2016-11-01 16:06 | RADRPT ---
PROCEDURE: Limited x-ray of both lower extremities. CLINICAL INDICATION: Bilateral leg pain. TECHNIQUE: Single frontal view of both lower extremities was obtained from the hips to the calves. COMPARISON: 06/26/2016. FINDINGS: The hips are grossly normal. There are degenerative changes of the right knee with varus deformity. There is a new left knee total arthroplasty. IMPRESSION: 1. Normal hips. 2. Degenerative changes of the right knee with varus deformity. 3. Left knee total arthroplasty. RPTAT: QQ .Castro Wallace MD, MD Date Time Electronically viewed and signed by .Castro Wallace MD, MD on 11/01/2016 16:06 .R/
--- NOTE | 2016-11-06 01:19 | CONS ---
DATE OF ADMISSION: 11/01/2016 DATE OF CONSULTATION: 11/05/2016 MEDICAL CONSULTATION REFERRING PHYSICIAN: Bowen Borjas MD Thank you, Dr. Borjas, for asking me to participate in the medical management of this patient. REASON FOR CONSULTATION: To manage the patient's hypertension, hyperlipidemia, hypothyroidism. HISTORY OF PRESENT ILLNESS: This 81-year-old female is now postop a right total knee arthroplasty by Dr. Borjas. The patient is sleepy but does arouse easily to verbal stimuli and follows commands. The patient denies any chest pain, or shortness of breath. She seems comfortable although her Pashto- speaking is limited. The patient has a note on the chart from Dr. Randy Devi which details her past medical history. PAST MEDICAL HISTORY: Is remarkable for hypertension, female stress incontinence, lumbago, arterial dementia, deviated nasal septum, hyperlipidemia, hypothyroidism, osteoarthritis. PAST SURGICAL HISTORY: Left total knee arthroplasty in 2017, nasal surgery. MEDICATION: Includes the following. 1. [place] 5/325 for pain. 2. Zoloft 50 mg a day. 3. Celebrex 200 mg a day. 4. Valsartan 160 mg twice a day. 5. Toviaz 4 mg once a day. 6. Vitamin D 50,000 units a week. 7. Vitamin B complex. 8. Klonopin 0.5 mg. 9. Voltaren topical gel. 10. MiraLAX. 11. Ambien. 12. Xanax 0.25 mg twice a day as needed. 13. Lyrica 50 mg 3 times a day. 14. Multivitamins. 15. Extra-strength Tylenol. 16. Ultram. 17. Colace. SOCIAL HISTORY: The patient is . She does not smoke nor drink alcohol. ALLERGIES: NO KNOWN DRUG ALLERGIES. PHYSICAL EXAMINATION: GENERAL APPEARANCE: At this time reveals a well-developed female in no apparent distress. VITAL SIGNS: Blood pressure 146/71, pulse of 94, O2 sat 95 percent on 2 L nasal cannula. HEENT: Head normocephalic. Eyes, extraocular muscles intact. Nose and mouth are normal. NECK: Supple. No neck vein distention. LUNGS: Clear to auscultation. HEART: Regular rhythm. No murmurs, gallops, or rubs. ABDOMEN: Soft, nontender. No masses or megaly. EXTREMITIES: No peripheral edema. The right leg has a large bandage on it around the knee. IMPRESSION: This patient is now postop a right total knee replacement. She is lethargic but does arouse to verbal stimuli. She does seem comfortable. She is not short of breath. She is not complaining of any chest pain. I will manage the patient's hypertension, hyperlipidemia, hypothyroidism. PLAN: 1. Resume some routine medications. 2. Check labs in the morning. 3. Postop total knee replacement protocol. 4. I will follow the patient along with you. Dictated By: Aime Salomon MD /brandon/ /Document#: [id number]
== END | disposition home or self-care (01) ==
LOC: HKI 09:57
PROVIDERS: ATTEND Orthopaedic Surgery
DX: M25.561 Pain in right knee (principal); M17.11 Unilateral primary osteoarthritis, right knee; Z96.652 Presence of left artificial knee joint; I10 Essential (primary) hypertension; E11.9 Type 2 diabetes mellitus without complications
CPT/HCPCS: 71010; 73564; 77073; G0463

== ENCOUNTER 2016-11-05 09:58 | Inpatient (IN) | payer MEDICARE, OTHER ==
[2016-11-01 14:40] LABS: ADD UMIC NO; UR ASCORBIC ACID NEGATIVE (NEGATIVE); UR BACTERIA FEW /HPF (NONE SEEN); UR BILIRUBIN (Dip) NEGATIVE (NEGATIVE); UR BLOOD (Dip) NEGATIVE (NEGATIVE); UR BUDDING YEAST MODERATE /HPF (NONE SEEN); UR CLARITY SLIGHTLY CLOUDY (CLEAR); UR COLOR YELLOW (YELLOW); UR GLUCOSE (Dip) NEGATIVE (NEGATIVE); UR KETONES (Dip) NEGATIVE (NEGATIVE); UR LEUKOCYTE ESTERASE (Dip) NEGATIVE Leu/ul (NEGATIVE); UR MUCUS FEW /HPF (NONE SEEN); UR NITRITE (Dip) NEGATIVE (NEGATIVE); UR RBC 2 /HPF (0-5); UR SPECIFIC GRAVITY (Dip) 1.023 (1.003-1.030); UR SQUAMOUS EPITHELIAL CELL FEW /HPF (FEW); UR TOTAL PROTEIN (Dip) NEGATIVE (NEGATIVE); UR UROBILINOGEN (Dip) NEGATIVE (NEGATIVE)
[~2016-11-05] VITALS: Ht 157.5 cm; Wt 72.5 kg
[2016-11-05] VITALS (19 sets, daily range): BP systolic 119–157; BP diastolic 49–83; PULSE 72–102; RESP 12–18; Ht 157.5 cm; Wt 72.5 kg
[~2016-11-05 09:58] MED LIST changes: -ASPI325T32 PO; +DESFLURANE 15 MIN ONE; -HYDR-3605 PO; -HYDR-906 PO; -PANT40TA4 PO; -SERT50TA PO; -TRAM50TA2 PO
[2016-11-05] MEDS ORDERED: SERT50TA PO (10:46)
[2016-11-05] MEDS ORDERED: HYDR-906 PO (10:53)
[2016-11-05] MEDS ORDERED: NEOSTIGMINE 3 MG/3 ML SYRINGE ONE (11:08)
[2016-11-05] MEDS ORDERED: PROPOFOL 20 ML ONE (11:08)
[2016-11-05] MEDS ORDERED: CEFAZOLIN 1 GM INJ ONE (11:08)
[2016-11-05] MEDS ORDERED: MIDAZOLAM 1 MG/ML 2 ML INJ ONE (11:08)
[2016-11-05] MEDS ORDERED: ONDANSETRON 4 MG INJ ONE (11:08)
[2016-11-05] MEDS ORDERED: DEXAMETHASONE 4 MG/ML 1 ML INJ ONE (11:08)
[2016-11-05] MEDS ORDERED: GLYCOPYRROLATE 0.4 MG INJ ONE (11:08)
[2016-11-05] MEDS ORDERED: ROCURONIUM 50 MG INJ ONE (11:08)
[2016-11-05] MEDS ORDERED: FENTAnyl 50 MCG/ML VIAL ONE (11:08)
[2016-11-05] MEDS ORDERED: PROPOFOL 100 ML ONE (11:09)
[2016-11-05] MEDS ORDERED: ETOMIDATE 20 MG INJ ONE (11:09)
[2016-11-05] MEDS ORDERED: BACITRACIN 50000 UNITS INJ ONE (11:57)
[2016-11-05] MEDS ORDERED: PAIN COCKTAIL-CEFUROXIME IRR SCH ×7 (12:00)
[2016-11-05] MEDS ORDERED: PREGABALIN 300 MG PO X1 PO SCH (12:00)
[2016-11-05] MEDS ORDERED: BUPIVACAINE LIPOSOME/PF 266 MG/20 ML VIAL INFIL SCH (12:00)
[2016-11-05] MEDS ORDERED: TRANEXAMIC ACID IV SCH (12:00)
[2016-11-05] MEDS ORDERED: SOD CHLORIDE 0.9% IV SCH (12:00)
[2016-11-05] MEDS ORDERED: traMADOL 50 MG TAB X 1 DOSE PO SCH (12:00)
[2016-11-05] MEDS ORDERED: CELECOXIB 400 MG PO X1 DOSE PO SCH (12:00)
[2016-11-05] MEDS ORDERED: EXPAREL NOTE (BUPIVICAINE LIPOSOMAL) XX SCH (12:00)
[2016-11-05] MEDS ORDERED: ONDANSETRON 4 MG IV X 1 DOSE IV SCH (12:00)
[2016-11-05] MEDS ORDERED: oxyCODONE (CR) 10 MG TAB [oxyCONTIN] X1 DOSE PO SCH (12:00)
[2016-11-05] MEDS ORDERED: LACTATED RINGER'S 1,000 ML IV SCH (12:00)
[2016-11-05] MEDS ORDERED: TRANEXAMIC ACID 720 MG in SOD CHLORIDE 0.9% 100 ML IVPB SCH (12:00)
[2016-11-05] MEDS ORDERED: CEFAZOLIN 2GM/50 ML (PMX) 50 ML X1 BEFORE INCISION IVPB SCH (12:00)
--- NOTE | 2016-11-05 12:35 | HPN ---
Date/Time of Note Date/Time of Note DATE: 11/05/16 TIME: 12:34 Interval H&P Admission Note Pt. seen H&P reviewed: No system changes No change from H&P on 10/29/16 by PATY Vera MD Nov 05, 2016 12:35
[2016-11-05] MEDS ORDERED: VANCOMYCIN 1 GM INJ ONE (12:55)
[2016-11-05] MEDS ORDERED: POLYMYXIN B 500000 UNIT INJ ONE (12:55)
[2016-11-05] MEDS ORDERED: OXYCODONE/ACETAMINOPHEN (5/325) TAB PO PRN ×2 (13:30)
[2016-11-05] MEDS ORDERED: IPRATROPIUM (NEB) 0.5 MG/2.5 ML AMP HHN PRN (13:30)
[2016-11-05] MEDS ORDERED: EPHEDrine SULFATE 50 MG/5 ML SYG IV PRN (13:30)
[2016-11-05] MEDS ORDERED: DIPHENHYDRAMINE 50 MG INJ IV PRN (13:30)
[2016-11-05] MEDS ORDERED: FENTAnyl 50 MCG/ML VIAL IV PRN ×2 (13:30)
[2016-11-05] MEDS ORDERED: ALBUTEROL 0.083% (NEB) 2.5 MG/3 ML AMP HHN PRN (13:30)
[2016-11-05] MEDS ORDERED: TRIMETHOBENZAMIDE 100 MG/ML VIAL IM PRN (13:30)
[2016-11-05] MEDS ORDERED: hydrALAzine 20 MG INJ IV PRN (13:30)
[2016-11-05] MEDS ORDERED: LABETALOL HCL 20MG INJ IV PRN (13:30)
[2016-11-05] MEDS ORDERED: MEPERIDINE 25 MG INJ IV PRN (13:30)
[2016-11-05] MEDS ORDERED: MIDAZOLAM 1 MG/ML 2 ML INJ IV PRN (13:30)
[2016-11-05] MEDS ORDERED: ONDANSETRON 4 MG INJ IV PRN ×2 (13:30→16:00)
[2016-11-05] MEDS ORDERED: HYDROmorphONE (0.2 MG/ML) 10ML SYG IV PRN ×3 (13:30)
[2016-11-05 14:23] LABS: ADD UMIC YES; UR ASCORBIC ACID NEGATIVE (NEGATIVE); UR BACTERIA FEW /HPF (NONE SEEN); UR BILIRUBIN (Dip) NEGATIVE (NEGATIVE); UR BLOOD (Dip) NEGATIVE (NEGATIVE); UR BUDDING YEAST MODERATE /HPF (NONE SEEN); UR CLARITY CLOUDY (CLEAR); UR COLOR YELLOW (YELLOW); UR GLUCOSE (Dip) NEGATIVE (NEGATIVE); UR KETONES (Dip) NEGATIVE (NEGATIVE); UR LEUKOCYTE ESTERASE (Dip) NEGATIVE Leu/ul (NEGATIVE); UR NITRITE (Dip) NEGATIVE (NEGATIVE); UR RBC 3 /HPF (0-5); UR SPECIFIC GRAVITY (Dip) 1.016 (1.003-1.030); UR SQUAMOUS EPITHELIAL CELL FEW /HPF (FEW); UR TOTAL PROTEIN (Dip) NEGATIVE (NEGATIVE); UR UROBILINOGEN (Dip) NEGATIVE (NEGATIVE)
[2016-11-05] MEDS ORDERED: SUGAMMADEX SODIUM 200 MG/2 ML VIAL IV ONE (15:15)
--- NOTE | 2016-11-05 15:47 | PN ---
Date/Time of Note Date/Time of Note DATE: 11/05/16 TIME: 15:46 Assessment/Plan Lines/Catheters IV Catheter Type (from Nrsg): Peripheral IV Assessment/Plan Assessment/Plan Stable in PACU, s/p right TKA -continue Ancef -pain meds as needed -ASA/SCDs -OOB with PT -check AM labs -monitor drain -d/c maya in AM XR of the right knee is pending at this time Subjective 24 Hr Interval Summary Stable in PACU. Denies pain. Moving all extremities. Exam/Review of Systems Vital Signs Vitals Vital Signs Date Time Temp Pulse Resp B/P Pulse Ox O2 Delivery O2 Flow Rate FiO2 11/05/16 11:23 98.2 86 16 127/70 93 Room Air Exam Free Text/Dictation Hemovac: minimal Dressing dry Incision clean, dry, and intact without redness or drainage Thigh soft 5/5 Quadriceps, Tibialis Anterior, EHL, Gastroc, Soleus, Peroneals Normal sensation Palpable DT/PT, CR <2 sec No distal edema MELANAI CRAIN PA-C Nov 05, 2016 15:47
[2016-11-05] MEDS ORDERED: ASPIRIN (EC) 325 MG TAB PO ONE (16:00)
[2016-11-05] MEDS ORDERED: HYDROCODONE/APAP (7.5/325) TAB PO PRN (16:00)
[2016-11-05] MEDS ORDERED: MAGNESIUM HYDROXIDE 30ML CUP PO PRN (16:00)
[2016-11-05] MEDS ORDERED: DIPHENHYDRAMINE 25 MG CAP PO PRN (16:00)
[2016-11-05] MEDS ORDERED: BISACODYL 10 MG SUPP PR PRN (16:00)
[2016-11-05] MEDS ORDERED: NA PHOSPHATE/BIPHOS 133 ML ENEMA PR PRN (16:00)
[2016-11-05] MEDS ORDERED: NACL 0.9% 3 ML SYG IV SCH (16:00)
[2016-11-05] MEDS: LACTATED RINGER'S 1,000 ML IV SCH ×2 (16:02→23:37)
[2016-11-05] MEDS: CEFAZOLIN 2 GM/50 ML (PMX) 50 ML IVPB SCH ×2 (16:02→23:38)
--- NOTE | 2016-11-05 16:02 | OPR ---
Date/Time of Note Date/Time of Note DATE: 11/05/16 TIME: 15:57 Operative Report Procedure Description DATE: 11/05/2016 PREOPERATIVE DIAGNOSIS: Right knee osteoarthritis POSTOPERATIVE DIAGNOSIS: Right knee osteoarthritis OPERATION PERFORMED: Right total knee arthroplasty. SURGEON: Paty Parker MD MISSILE TECHNICIAN: Miguel Houser PA-C COMPONENTS USED: Depuy Attune size 5 narrow femoral component, size 3 tibial baseplate, 10 mm polyethylene insert, 32 patellar button ANESTHESIA: Spinal plus general endotracheal intubation, plus periarticular injection ANESTHESIOLOGIST: Michel Kim M.D. TOURNIQUET TIME: 57 minutes. ESTIMATED BLOOD LOSS: 50 cc INTRAVENOUS FLUIDS: 2000 cc crystalloid SPECIMENS: Bone and soft tissue. DRAINS: Hemovac x1. COMPLICATIONS: None. DISPOSITION: The patient tolerated the procedure well and was taken to the recovery room in stable condition. INDICATIONS: The patient is an 81-year-old woman who has developed severe osteoarthritis of the right knee. She has tried a multitude of nonsurgical means of treatment to address her pain including activity modifications, pain medications, intra-articular injections, and ambulatory assist devices. Despite these measures she has had worsening pain and I feel she will benefit from a total knee arthroplasty. . The risks, benefits, and alternatives of the procedure were explained in detail to the patient. I explained the risks of the surgery to include but not be limited to, bleeding and possible need for blood transfusion; infection; pain; stiffness; neurovascular injury with possible numbness, weakness, and/or paralysis anywhere from the knee down to the toes; fracture; instability; dislocation; wear and/or loosening of the prosthesis and possible need for future revision; blood clots; pulmonary embolism; and anesthetic complications such as heart attack, stroke, GI bleed, pneumonia, and/or . Ample time was allowed for the patient to ask questions, all of which were addressed and answered. The patient understood the risks involved and wished to proceed. Informed consent was signed prior to the procedure. PROCEDURE: The patient's right knee was initialed with a marking pen in the preoperative area to identify the correct operative site. The patient was brought to the operating room and transferred from the [facility] to the operating table where a spinal anesthetic was administered. The patient was then anesthetized and intubated. A Grossman catheter was placed. A timeout was performed to confirm that the right leg was the correct operative site. The patient was given 2 g of Ancef within one hour prior to the procedure. A tourniquet was placed on the operative proximal thigh. The operative knee and lower extremity were prepped and draped in the usual sterile fashion. The operative lower extremity was elevated and exsanguinated with an Esmarch tourniquet. The proximal thigh tourniquet was inflated to 300 mmHg. The knee was flexed. A midline incision was made and carried down through the subcutaneous tissue and fat with sharp dissection. Limited medial and lateral flaps were raised. A medium parapatellar approach was performed. Synovial fluid was normal in color and consistency. The patella was everted and the knee flexed. There were severe tricompartmental osteoarthritic changes noted. A medial release was performed at the joint line to the midcoronal plane. The ACL and PCL and remnants of the menisci were excised. The stepped drill was used to open up the femoral canal which was irrigated and sucked dry. The intramedullary guide to was passed up the femur, and the distal cutting block was pinned into place for a 7 degree valgus cut, taking 10 mm of bone off distally. The oscillating saw was used to make the cut. The tibia was subluxed anteriorly. The tibial cutoff jig was placed over the center of the talus distally and over the junction of the medial and middle third of the tibial tubercle proximally. The guide was pinned into place and the oscillating saw was used to make the cut. The tibia was sized. The extension gap was checked and accommodated a 10 mm spacer block with the knee in full extension. There was no varus or valgus instability. At this point, the femur was sized with the posterior referencing guide. Two holes were drilled in 3 degrees of external rotation. The two holes were in line with the transepicondylar axis, perpendicular to Reynolds's line, and in line with the tibial cutoff jig brought up with the knee flexed 90 degrees and tensed with 2 lamina spreaders, suggesting the femoral rotation was correct. The four-in-one cutting block was pinned into place. The anterior and posterior cuts and chamfer cuts were made with the oscillating saw. The flexion gap was checked and accommodated the 10 mm spacer block at 90 degrees. There was no varus or valgus instability, suggesting the flexion and extension gaps were now equal. The central box was cut out on the femur. The tibia was drilled and punched in proper rotation. Trial components were placed into position with a trial insert. The patella was cut down to 13 mm and sized. Three holes were drilled and the trial button placed in position. With all the trials now in place, the knee was taken through range of motion and came to full extension as evidenced by the fact that with the foot on my abdomen and axial loading, there was no tendency for the knee to flex. The knee was able to be flexed to 125 degrees with good patellar tracking with no lateral tilt or subluxation. At this point, I was satisfied with the overall range of motion, stability, and patellar tracking. The trials were removed. The real components were opened. Two bags of cement were mixed, one with and one without premixed antibiotic. The knee was irrigated with antibiotic saline and sucked dry. Once the cement was in a doughy stage, the real components were cemented into place. The knee was held in full extension, and the patellar component was held with a patellar clamp. All excess cement was removed with curettes. As the cement was hardening, the synovial/capsular layer was infiltrated with a mixture of 150 mg of 0.5% Bupivacaine, 8 mg of Duramorph, 300 mcg of epinephrine, 30 mg of Toradol, 100 mcg of clonidine, 750 mg of cefuroxime and 86 mL of normal saline, followed by an injection of 266 mg of liposomal Bupivacaine. A Hemovac drain was placed in the deep portion of the wound and brought out the anterolateral thigh. Once the cement was completely hardened, the trial liner was removed, and the real insert was opened. The tourniquet was let down, and there was good hemostasis. The knee was then irrigated with a mixture of betadine/saline and then antibiotic saline with pulsatile lavage. The real insert was impacted into the tibia and reduced onto to the femur. The arthrotomy was closed with a few interrupted #1 Ethibond in a figure-of- eight fashion, and then closed in a watertight fashion with a running #2 Stratafix suture. The medial half of the patellar tendon had peeled back but the lateral half remained intact on the tubercle. I placed 2 drill holes and sutured the medial half down with interrupted #2 Ethibond suture. Knee flexion was checked against gravity and came to 125 degrees. The subcutaneous layer was irrigated and closed with 2-0 Statafix, and then 3-0 Vicryl and then felisa on the skin. The wound was covered with an occlusive dressing, and secured with cast padding and a bias dressing. The drain was secured with 3-0 nylon. The sponge and needle counts were correct at the end of the case. The patient was then awakened, extubated, and taken to the recovery room in stable condition. PATY PARKER MD Nov 05, 2016 16:02
[2016-11-05] MEDS: FENTAnyl 50 MCG/ML VIAL IV PRN ×2 (16:12→16:26)
[2016-11-05 16:24] LABS: HEMATOCRIT 37.2 % (37.0-47.0); HEMOGLOBIN 11.7 g/dl (12.0-16.0)
--- NOTE | 2016-11-05 16:45 | RADRPT ---
PROCEDURE: XR Knee. CLINICAL INDICATION: Status post right knee replacement TECHNIQUE: AP and lateral view of the right knee were obtained. The images reviewed on a PACS wor kstation. COMPARISON: November 01, 2016 FINDINGS: Complete right knee replacement is identified. Prosthetic components are in appropriate position an d alignment. No fractures or destructive lesions are observed. Surgical drain is seen in the knee. Soft tissue air is procedural in nature. IMPRESSION: Status post right knee replacement. Prosthetic components are in appropriate position and alignment . RPTAT: AA .Eduar Miranda MD, Date Time Electronically viewed and signed by .Eduar Miranda MD, on 11/05/2016 16:45 .P/
[2016-11-05 16:48] LABS: CALCIUM 8.9 mg/dl (8.4-10.2); POTASSIUM 4.4 mmol/L (3.5-5.1)
[2016-11-05 17:05] LABS: CREATININE 0.81 mg/dl (0.44-1.00)
[2016-11-05] MEDS: PANTOPRAZOLE (EC) 40 MG TAB PO SCH (17:44)
[2016-11-05] MEDS: traMADol 50 MG TAB PO SCH ×2 (17:44→23:38)
[2016-11-05] MEDS ORDERED: TRANEXAMIC ACID 730 MG in SOD CHLORIDE 0.9% 100 ML IVPB ONE ×2 (19:00→22:00)
[2016-11-05] MEDS: HYDROmorphONE 1 MG/ML SYG IV PRN (19:36)
[2016-11-05] MEDS: DOCUSATE SODIUM 100 MG CAP PO SCH (20:31)
[2016-11-05] MEDS: VALSARTAN 160 MG TAB PO SCH (20:31)
[2016-11-05] MEDS: PREGABALIN 50 MG CAP PO SCH (20:31)
[2016-11-06] MEDS: PANTOPRAZOLE (EC) 40 MG TAB PO SCH ×2 (06:07→17:37)
[2016-11-06] MEDS: traMADol 50 MG TAB PO SCH ×3 (06:07→17:37)
[2016-11-06 06:25] LABS: ADD UMIC YES; UR ASCORBIC ACID NEGATIVE (NEGATIVE); UR BILIRUBIN (Dip) NEGATIVE (NEGATIVE); UR BLOOD (Dip) 2+ mg/dL (NEGATIVE); UR BUDDING YEAST MANY /HPF (NONE SEEN); UR CLARITY CLEAR (CLEAR); UR COLOR YELLOW (YELLOW); UR GLUCOSE (Dip) NEGATIVE (NEGATIVE); UR KETONES (Dip) NEGATIVE (NEGATIVE); UR LEUKOCYTE ESTERASE (Dip) 1+ Leu/ul (NEGATIVE); UR NITRITE (Dip) NEGATIVE (NEGATIVE); UR RBC 31 /HPF (0-5); UR SPECIFIC GRAVITY (Dip) 1.016 (1.003-1.030); UR TOTAL PROTEIN (Dip) NEGATIVE (NEGATIVE); UR UROBILINOGEN (Dip) NEGATIVE (NEGATIVE)
[2016-11-06 06:31] LABS: HEMATOCRIT 34.7 % (37.0-47.0)
[2016-11-06 07:04] LABS: CALCIUM 8.7 mg/dl (8.4-10.2); CREATININE 0.89 mg/dl (0.44-1.00); POTASSIUM 4.7 mmol/L (3.5-5.1)
--- NOTE | 2016-11-06 07:25 | PDOCDIS ---
Discharge Instructions DIAGNOSIS Discharge Diagnosis s/p right TKA CONDITION Patient Condition: Good HOME CARE INSTRUCTIONS: Diet Instructions: Regular ACTIVITY: Activity Restrictions: Slowly Increase Activity Rest between Activity Avoid heavy lifting Do not operate Machinery Do not operate Power Tool Avoid Heavy Housework Keep Limb Elevated Weight Bearing Bathing Restrictions: Shower FOLLOW UP/APPOINTMENTS Follow-up Plan follow up in the office on 11/15/16 OTHER ORDERS: Other Orders: S/P TKA Physical Therapy: Three times per week at home x 2 weeks Daily in Rehab/SNF WB STATUS: WBAT 1. Strengthening exercises for both upper and un-operated lower extremities. 2. Gait training with front wheeled walker 3. Active range of motion exercises to operative knee. 4. When not working on knee range of motion exercises, distal towel roll under operative ankle/distal calf to promote full extension. 5. DO NOT PUT ANYTHING BEHIND OPERATIVE KNEE!!! 6. Quadriceps and hamstring strengthening. 7. May switch to cane in contra lateral hand 6 weeks after surgery. 8. Physical Therapy can open case if nursing is not available. 9. Use Ice Machine as instructed from date of surgery while at rest 3X/day. 10. Patient requires mobile SCDs to reduce risk of developing DVT following TKA. Patient will use the mobile SCDs for 30 days postoperatively. Bathing assistance by home health aide twice weekly if Medicare patient. Occupational Therapy: Evaluation for assistive devices and ADL training. Wound Care: Keep incision dry & covered with Tegaderm until first visit with Dr. Borjas Anticoagulation Orders: Enteric Coated Aspirin 325 mg po bid x 6 weeks from date of surgery Follow-up:Call for an appointment with Dr. Borjas in 1 week after discharged from hospital at DME Orders: FWW, 3-in-1 Commode, Polar ice machine, Mobile SCDs MELANIA CRAIN PA-C Nov 06, 2016 07:25
[2016-11-06] MEDS ORDERED: PREG50CA PO (07:27)
[2016-11-06] MEDS ORDERED: TRAM50TA2 PO (07:27)
[2016-11-06] MEDS ORDERED: ASPI325T32 PO (07:27)
[2016-11-06] MEDS ORDERED: HYDR-3605 PO (07:27)
[2016-11-06] MEDS ORDERED: PANT40TA4 PO (07:27)
--- NOTE | 2016-11-06 07:56 | CONS ---
Date/Time of Note Date/Time of Note DATE: 11/06/16 TIME: 07:54 Assessment/Plan Assessment/Plan Additional Assessment/Plan 1. Doing well post op right knee replacement. 2. Hx HBP, well controlled. Consultation Date/Type/Reason Admit Date/Time Nov 05, 2016 at 09:58 Initial Consult Date Detailed Summary Respiratory: No shortness of breath Cardiovascular: No chest pain Gastrointestinal: no complaints Genitourinary: no complaints Musculoskeletal: bone/joint pain (mild right knee pain) Exam/Review of Systems Vital Signs Vitals Vital Signs Date Time Temp Pulse Resp B/P Pulse Ox O2 Delivery O2 Flow Rate FiO2 11/05/16 23:59 98.0 72 18 135/70 99 Nasal Cannula 2.0 Intake and Output 11/05/16 11/05/16 11/06/16 15:00 23:00 07:00 Intake Total 2000 ml 514.6 ml 2075 ml Output Total 50 ml 500 ml 1470 ml Balance 1950 ml 14.6 ml 605 ml Exam Neck: No jvd Respiratory: clear to auscultation Cardiovascular: regular rate and rhythm Gastrointestinal: soft Extremities: No edema (left lower extrem and no calf tend, right lower bandaged ) Results Result Diagram: 11/06/16 0457 11/06/16 0457 Results 24 hrs Laboratory Tests Test 11/05/16 11:35 11/05/16 16:16 11/06/16 04:50 11/06/16 04:57 Urine Color YELLOW YELLOW Urine Clarity CLOUDY A CLEAR Urine pH 5.0 5.0 Urine Specific [place] 1.016 1.016 Urine Ketones NEGATIVE NEGATIVE Urine Nitrite NEGATIVE NEGATIVE Urine Bilirubin NEGATIVE NEGATIVE Urine Urobilinogen NEGATIVE NEGATIVE Urine Leukocyte Esterase NEGATIVE 1+ H Urine Microscopic RBC 3 31 H Urine Microscopic WBC 3 12 H Urine Squamous Epithelial Cells FEW Urine Bacteria FEW A Urine Yeast (Budding) MODERATE A MANY A Urine Hemoglobin NEGATIVE 2+ H Urine Glucose NEGATIVE NEGATIVE Urine Total Protein NEGATIVE NEGATIVE Hemoglobin 11.7 L 11.0 L Hematocrit 37.2 34.7 L Sodium Level 144 138 Potassium Level 4.4 4.7 Chloride Level 104 99 Carbon Dioxide Level 26 25 Anion Gap 18 H 19 H Blood Urea Nitrogen 16 17 Creatinine 0.81 0.89 Glucose Level 142 137 Calcium Level 8.9 8.7 Medications Medications Current Medications Miscellaneous Information 1 ea NOTE XX ; Start 11/05/16 at 12:00; Stop 11/08/16 at 12:01 Sertraline HCl (Zoloft) 50 mg DAILY PO ; Start 11/06/16 at 09:00 Valsartan 160 mg 160 mg BID PO Last administered on 11/05/16 20:31; Admin Dose 160 MG; Start 11/05/16 at 21:00 Lactated Ringer's (Lr) 1,000 ml @ 125 mls/hr Q8H IV Last administered on 23:37; Admin Dose 125 MLS/HR; Start 11/05/16 at 15:35 Tramadol HCl (Ultram) 50 mg Q6 PO Last administered on 11/06/16 06:07; Admin Dose 50 MG; Start 11/05/16 at 18:00; Stop 11/08/16 at 17:59 Hydromorphone HCl 1 mg 1 mg Q3H PRN IV PAIN LEVEL 8-10 Last administered on 11/05 19:36; Admin Dose 1 MG; Start 11/05/16 at 16:00 Cefazolin Sodium/ Dextrose (Ancef 2 Gm/50 ml (Pmx)) 50 ml @ 100 mls/hr Q8H IVPB Last administered on 11/05/16 23:38; Admin Dose 100 MLS/HR; Start 11/05/16 at 16:00; Stop 11/06/16 at 08:29 Ondansetron HCl (Zofran Inj) 4 mg Q6H PRN IV NAUSEA AND/OR VOMITING; Start 11/05 at 16:00 Bisacodyl (Dulcolax Supp) 10 mg Q12H PRN [place] CONSTIPATION; Start 11/05/16 at 16: 00 Magnesium Hydroxide (Milk Of Mag) 30 ml BID PRN PO CONSTIPATION; Start 11/05/16 at 16:00 Sodium Biphosphate/ Sodium Phosphate (Fleet Enema) 133 ml DAILY PRN [place] CONSTIPATION; Start 11/05/16 at 16:00 Docusate Sodium (Colace) 100 mg BID PO Last administered on 11/05/16 20:31; Admin Dose 100 MG; Start 11/05/16 at 21:00 Diphenhydramine HCl (Benadryl) 25 mg Q6H PRN PO PRURITUS; Start 11/05/16 at 16: 00 Acetaminophen/ Hydrocodone Bitart ([place] (7.5-325)) 1 tab Q4H PRN PO PAIN LEVEL 1-3; Start 11/05/16 at 16:00 Acetaminophen/ Hydrocodone Bitart ([place] (7.5-325)) 2 tab Q4H PRN PO PAIN LEVEL 4-7; Start 11/05/16 at 16:00 Aspirin (Ecotrin) 325 mg BID PO ; Start 11/06/16 at 09:00 Pantoprazole (Protonix Tab) 40 mg BID@,18 PO Last administered on 11/06/16 06 :07; Admin Dose 40 MG; Start 11/05/16 at 18:00 Pregabalin (Lyrica) 50 mg BID PO Last administered on 11/05/16 20:31; Admin Dose 50 MG; Start 11/05/16 at 21:00 JACKY NELSON MD Nov 06, 2016 07:56
[2016-11-06 07:58] VITALS: BP 132/64; RESP 17
--- NOTE | 2016-11-06 08:38 | PN ---
Date/Time of Note Date/Time of Note DATE: 11/06/16 TIME: 08:37 Assessment/Plan Lines/Catheters IV Catheter Type (from Nrsg): Peripheral IV Grossman in Place (from Nrsg): Yes Subjective 24 Hr Interval Summary No acute overnight events. Denies significant pain. Did not start PT yesterday. VSS, afebrile. Will plan to go to [facility] upon discharge. Exam/Review of Systems Vital Signs Vitals Vital Signs Date Time Temp Pulse Resp B/P Pulse Ox O2 Delivery O2 Flow Rate FiO2 11/06/16 07:58 98.5 99 17 132/64 96 11/05/16 23:59 Nasal Cannula 2.0 Intake and Output 11/05/16 11/05/16 11/06/16 14:59 22:59 06:59 Intake Total 2000 ml 514.6 ml 2075 ml Output Total 50 ml 500 ml 1470 ml Balance 1950 ml 14.6 ml 605 ml Exam Free Text/Dictation Hemovac: 220cc Dressing dry Incision clean, dry, and intact without redness or drainage Thigh soft 5/5 Quadriceps, Tibialis Anterior, EHL, Gastroc, Soleus, Peroneals Normal sensation Palpable DT/PT, CR <2 sec No distal edema Results Result Diagram: 11/06/16 0457 11/06/16 0457 MELANIA CRAIN PA-C Nov 06, 2016 08:38
[2016-11-06] MEDS: CEFAZOLIN 2 GM/50 ML (PMX) 50 ML IVPB SCH ×3 (08:40→21:26)
[2016-11-06] MEDS: LACTATED RINGER'S 1,000 ML IV SCH ×3 (08:41→23:35)
[2016-11-06] MEDS: VALSARTAN 160 MG TAB PO SCH ×2 (08:42→20:57)
[2016-11-06] MEDS: SERTRALINE 50 MG TAB PO SCH (08:42)
[2016-11-06] MEDS: DOCUSATE SODIUM 100 MG CAP PO SCH ×2 (08:42→20:57)
[2016-11-06] MEDS: PREGABALIN 50 MG CAP PO SCH ×2 (08:42→20:57)
[2016-11-06] MEDS: ASPIRIN (EC) 325 MG TAB PO SCH ×2 (08:42→20:57)
[2016-11-06 15:37] VITALS: BP 116/57; RESP 18
[2016-11-06 21:13] VITALS: BP 115/58; RESP 20
[2016-11-06] MEDS: HYDROCODONE/APAP (7.5/325) TAB PO PRN (21:43)
[2016-11-07 02:45] VITALS: BP 101/56; RESP 20
[2016-11-07 05:13] LABS: HEMATOCRIT 30.4 % (37.0-47.0); HEMOGLOBIN 9.8 g/dl (12.0-16.0)
[2016-11-07 05:41] LABS: CALCIUM 8.5 mg/dl (8.4-10.2); CREATININE 0.81 mg/dl (0.44-1.00); POTASSIUM 4.2 mmol/L (3.5-5.1)
[2016-11-07] MEDS: CEFAZOLIN 2 GM/50 ML (PMX) 50 ML IVPB SCH (06:11)
[2016-11-07] MEDS: traMADol 50 MG TAB PO SCH ×4 (06:12→17:33)
[2016-11-07] MEDS: PANTOPRAZOLE (EC) 40 MG TAB PO SCH ×2 (06:12→17:33)
[2016-11-07] MEDS: LACTATED RINGER'S 1,000 ML IV SCH ×3 (08:00→23:35)
--- NOTE | 2016-11-07 08:03 | CONS ---
Date/Time of Note Date/Time of Note DATE: 11/07/16 TIME: 08:02 Assessment/Plan Assessment/Plan Additional Assessment/Plan 1. Doing well post op right knee replacement. 2. Hx HBP, well controlled. Consultation Date/Type/Reason Admit Date/Time Nov 05, 2016 at 09:58 Detailed Summary Respiratory: No cough, No shortness of breath Cardiovascular: No no complaints Gastrointestinal: constipation Genitourinary: no complaints Musculoskeletal: bone/joint pain (inc right knee pain) Exam/Review of Systems Vital Signs Vitals Vital Signs Date Time Temp Pulse Resp B/P Pulse Ox O2 Delivery O2 Flow Rate FiO2 11/07/16 02:45 98.6 82 20 101/56 97 11/05/16 23:59 Nasal Cannula 2.0 Intake and Output 11/06/16 11/06/16 11/07/16 15:00 23:00 07:00 Intake Total 1175 ml 1060 ml 300 ml Output Total 600 ml 20 ml Balance 1175 ml 460 ml 280 ml Exam Neck: No jvd Respiratory: clear to auscultation Cardiovascular: regular rate and rhythm Gastrointestinal: soft Extremities: No edema (left lower extrem and no calf tend, right bandaged) Results Result Diagram: 11/07/16 0445 11/07/16 0445 Results 24 hrs Laboratory Tests Test 11/07/16 04:45 Hemoglobin 9.8 L Hematocrit 30.4 L Sodium Level 143 Potassium Level 4.2 Chloride Level 103 Carbon Dioxide Level 29 Anion Gap 15 Blood Urea Nitrogen 17 Creatinine 0.81 Glucose Level 108 Calcium Level 8.5 Medications Medications Current Medications Miscellaneous Information 1 ea NOTE XX ; Start 11/05/16 at 12:00; Stop 11/08/16 at 12:01 Sertraline HCl (Zoloft) 50 mg DAILY PO Last administered on 11/06/16 08:42; Admin Dose 50 MG; Start 11/06/16 at 09:00 Valsartan 160 mg 160 mg BID PO Last administered on 11/06/16 20:57; Admin Dose 160 MG; Start 11/05/16 at 21:00 Lactated Ringer's (Lr) 1,000 ml @ 125 mls/hr Q8H IV Last administered on 08:41; Admin Dose 125 MLS/HR; Start 11/05/16 at 15:35 Tramadol HCl (Ultram) 50 mg Q6 PO Last administered on 11/07/16 06:12; Admin Dose 50 MG; Start 11/05/16 at 18:00; Stop 11/08/16 at 17:59 Hydromorphone HCl (Dilaudid) 1 mg Q3H PRN IV PAIN LEVEL 8-10 Last administered on 11/05/16 19:36; Admin Dose 1 MG; Start 11/05/16 at 16:00 Ondansetron HCl (Zofran Inj) 4 mg Q6H PRN IV NAUSEA AND/OR VOMITING; Start 11/05 at 16:00 Bisacodyl (Dulcolax Supp) 10 mg Q12H PRN [place] CONSTIPATION; Start 11/05/16 at 16: 00 Magnesium Hydroxide (Milk Of Mag) 30 ml BID PRN PO CONSTIPATION; Start 11/05/16 at 16:00 Sodium Biphosphate/ Sodium Phosphate (Fleet Enema) 133 ml DAILY PRN [place] CONSTIPATION; Start 11/05/16 at 16:00 Docusate Sodium (Colace) 100 mg BID PO Last administered on 11/06/16 20:57; Admin Dose 100 MG; Start 11/05/16 at 21:00 Diphenhydramine HCl (Benadryl) 25 mg Q6H PRN PO PRURITUS; Start 11/05/16 at 16: 00 Acetaminophen/ Hydrocodone Bitart ([place] (7.5-325)) 1 tab Q4H PRN PO PAIN LEVEL 1-3 Last administered on 11/06/16 21:43; Admin Dose 1 TAB; Start 11/05/16 at 16:00 Acetaminophen/ Hydrocodone Bitart ([place] (7.5-325)) 2 tab Q4H PRN PO PAIN LEVEL 4-7; Start 11/05/16 at 16:00 Aspirin (Ecotrin) 325 mg BID PO Last administered on 11/06/16 20:57; Admin Dose 325 MG; Start 11/06/16 at 09:00 Pantoprazole (Protonix Tab) 40 mg BID@,18 PO Last administered on 11/07/16 06:12; Admin Dose 40 MG; Start 11/05/16 at 18:00 Pregabalin (Lyrica) 50 mg BID PO Last administered on 11/06/16 20:57; Admin Dose 50 MG; Start 11/05/16 at 21:00 JACKY NELSON MD Nov 07, 2016 08:03
[2016-11-07] MEDS: PREGABALIN 50 MG CAP PO SCH ×2 (08:23→20:15)
[2016-11-07] MEDS: DOCUSATE SODIUM 100 MG CAP PO SCH ×2 (08:23→20:15)
[2016-11-07] MEDS: ASPIRIN (EC) 325 MG TAB PO SCH ×2 (08:23→20:15)
[2016-11-07] MEDS: SERTRALINE 50 MG TAB PO SCH (08:23)
[2016-11-07] MEDS: HYDROCODONE/APAP (7.5/325) TAB PO PRN ×2 (08:23→20:18)
[2016-11-07] MEDS: VALSARTAN 160 MG TAB PO SCH ×2 (08:26→20:15)
[2016-11-07 08:48] VITALS: BP 126/64; RESP 18
[2016-11-07] MEDS: HYDROmorphONE 1 MG/ML SYG IV PRN (10:03)
--- NOTE | 2016-11-07 10:43 | PN ---
Date/Time of Note Date/Time of Note DATE: 11/07/16 TIME: 10:42 Assessment/Plan Lines/Catheters IV Catheter Type (from Nrsg): Saline Lock Grossman in Place (from Nrsg): No Assessment/Plan Assessment/Plan Stable POD #2, s/p right TKA -d/c Ancef -pain meds prn -ASA/SCDs -dressing changed -check AM labs -d/c planning. Plan to transfer to [facility] tomorrow Subjective 24 Hr Interval Summary No acute overnight events. Denies pain at rest but c/o pain with ambulation. VSS , afebrile. Will plan to transfer to [facility] tomorrow. Exam/Review of Systems Vital Signs Vitals Vital Signs Date Time Temp Pulse Resp B/P Pulse Ox O2 Delivery O2 Flow Rate FiO2 11/07/16 08:48 97.6 81 18 126/64 95 11/05/16 23:59 Nasal Cannula 2.0 Intake and Output 11/06/16 11/06/16 11/07/16 15:00 23:00 07:00 Intake Total 1175 ml 1060 ml 300 ml Output Total 600 ml 20 ml Balance 1175 ml 460 ml 280 ml Exam Free Text/Dictation Hemovac: 20cc Dressing dry Incision clean, dry, and intact without redness or drainage Thigh soft 5/5 Quadriceps, Tibialis Anterior, EHL, Gastroc, Soleus, Peroneals Normal sensation Palpable DT/PT, CR <2 sec No distal edema Results Result Diagram: 11/07/16 0445 11/07/16 0445 MELANIA CRAIN PA-C Nov 07, 2016 10:43
[2016-11-07 14:30] VITALS: BP 112/57; RESP 18
[2016-11-07 20:03] VITALS: BP 121/61; RESP 19
[2016-11-08] MEDS: HYDROCODONE/APAP (7.5/325) TAB PO PRN (03:44)
[2016-11-08 06:08] LABS: HEMATOCRIT 33.3 % (37.0-47.0); HEMOGLOBIN 10.5 g/dl (12.0-16.0)
[2016-11-08] MEDS: PANTOPRAZOLE (EC) 40 MG TAB PO SCH (06:13)
[2016-11-08] MEDS: traMADol 50 MG TAB PO SCH ×3 (06:13→12:06)
[2016-11-08 06:34] LABS: CALCIUM 8.5 mg/dl (8.4-10.2); CREATININE 0.8 mg/dl (0.44-1.00); POTASSIUM 4.8 mmol/L (3.5-5.1)
[2016-11-08] MEDS: LACTATED RINGER'S 1,000 ML IV SCH (07:35)
[2016-11-08] MEDS: SERTRALINE 50 MG TAB PO SCH (08:19)
[2016-11-08] MEDS: VALSARTAN 160 MG TAB PO SCH (08:19)
[2016-11-08] MEDS: PREGABALIN 50 MG CAP PO SCH (08:19)
[2016-11-08] MEDS: DOCUSATE SODIUM 100 MG CAP PO SCH (08:19)
[2016-11-08] MEDS: ASPIRIN (EC) 325 MG TAB PO SCH (08:19)
--- NOTE | 2016-11-08 08:33 | CONS ---
Date/Time of Note Date/Time of Note DATE: 11/08/16 TIME: 08:32 Assessment/Plan Assessment/Plan Additional Assessment/Plan 1. Doing well post op right knee replacement. 2. Hx HBP, well controlled. 3. Labs rev and can transfer if ok with ortho and PT Consultation Date/Type/Reason Admit Date/Time Nov 05, 2016 at 09:58 Detailed Summary Respiratory: No cough, No shortness of breath Cardiovascular: No chest pain Gastrointestinal: no complaints Genitourinary: no complaints Musculoskeletal: bone/joint pain (mild right knee pain) Exam/Review of Systems Vital Signs Vitals Vital Signs Date Time Temp Pulse Resp B/P Pulse Ox O2 Delivery O2 Flow Rate FiO2 11/07/16 20:03 98.3 86 19 121/61 100 11/05/16 23:59 Nasal Cannula 2.0 Intake and Output 11/07/16 11/07/16 11/08/16 15:00 23:00 07:00 Intake Total 1280 ml 1000 ml Balance 1280 ml 1000 ml Exam Neck: No jvd Respiratory: clear to auscultation Cardiovascular: regular rate and rhythm Gastrointestinal: soft Extremities: No edema (and no calf tend) Results Result Diagram: 11/08/16 0456 11/08/16 0456 Results 24 hrs Laboratory Tests Test 11/08/16 04:56 Hemoglobin 10.5 L Hematocrit 33.3 L Sodium Level 141 Potassium Level 4.8 Chloride Level 98 Carbon Dioxide Level 33 H Anion Gap 15 Blood Urea Nitrogen 14 Creatinine 0.80 Glucose Level 101 Calcium Level 8.5 Medications Medications Current Medications Miscellaneous Information 1 ea NOTE XX ; Start 11/05/16 at 12:00; Stop 11/08/16 at 12:01 Sertraline HCl (Zoloft) 50 mg DAILY PO Last administered on 11/08/16 08:19; Admin Dose 50 MG; Start 11/06/16 at 09:00 Valsartan 160 mg 160 mg BID PO Last administered on 11/08/16 08:19; Admin Dose 160 MG; Start 11/05/16 at 21:00 Lactated Ringer's (Lr) 1,000 ml @ 125 mls/hr Q8H IV Last administered on 08:41; Admin Dose 125 MLS/HR; Start 11/05/16 at 15:35 Tramadol HCl (Ultram) 50 mg Q6 PO Last administered on 11/08/16 06:13; Admin Dose 50 MG; Start 11/05/16 at 18:00; Stop 11/08/16 at 17:59 Hydromorphone HCl (Dilaudid) 1 mg Q3H PRN IV PAIN LEVEL 8-10 Last administered on 11/07/16 10:03; Admin Dose 1 MG; Start 11/05/16 at 16:00 Ondansetron HCl (Zofran Inj) 4 mg Q6H PRN IV NAUSEA AND/OR VOMITING; Start 11/05 at 16:00 Bisacodyl (Dulcolax Supp) 10 mg Q12H PRN CO CONSTIPATION; Start 11/05/16 at 16: 00 Magnesium Hydroxide (Milk Of Mag) 30 ml BID PRN PO CONSTIPATION; Start 11/05/16 at 16:00 Sodium Biphosphate/ Sodium Phosphate (Fleet Enema) 133 ml DAILY PRN CO CONSTIPATION; Start 11/05/16 at 16:00 Docusate Sodium (Colace) 100 mg BID PO Last administered on 11/08/16 08:19; Admin Dose 100 MG; Start 11/05/16 at 21:00 Diphenhydramine HCl (Benadryl) 25 mg Q6H PRN PO PRURITUS; Start 11/05/16 at 16: 00 Acetaminophen/ Hydrocodone Bitart ([place] (7.5-325)) 1 tab Q4H PRN PO PAIN LEVEL 1-3 Last administered on 11/08/16 03:44; Admin Dose 1 TAB; Start 11/05/16 at 16:00 Acetaminophen/ Hydrocodone Bitart ([place] (7.5-325)) 2 tab Q4H PRN PO PAIN LEVEL 4-7; Start 11/05/16 at 16:00 Aspirin (Ecotrin) 325 mg BID PO Last administered on 11/08/16 08:19; Admin Dose 325 MG; Start 11/06/16 at 09:00 Pantoprazole (Protonix Tab) 40 mg BID@,18 PO Last administered on 11/08/16 06:13; Admin Dose 40 MG; Start 11/05/16 at 18:00 Pregabalin (Lyrica) 50 mg BID PO Last administered on 11/08/16 08:19; Admin Dose 50 MG; Start 11/05/16 at 21:00 JACKY NELSON MD Nov 08, 2016 08:33
[2016-11-08 08:40] VITALS: BP 122/60; RESP 18
--- NOTE | 2016-11-08 09:16 | PN ---
Date/Time of Note Date/Time of Note DATE: 11/08/16 TIME: 09:15 Assessment/Plan Lines/Catheters IV Catheter Type (from Nrsg): Saline Lock Grossman in Place (from Nrsg): No Assessment/Plan Assessment/Plan Stable POD #3, s/p right TKA -pain meds as needed -ASA/SCDs -OOB with PT -dressing changed -transfer to [facility] today -follow up in the office in 1 week Subjective 24 Hr Interval Summary No acute overnight events. Denies significant pain. Progressing well with PT. VSS, afebrile. Stable for transfer to [facility] today. Exam/Review of Systems Vital Signs Vitals Vital Signs Date Time Temp Pulse Resp B/P Pulse Ox O2 Delivery O2 Flow Rate FiO2 11/08/16 08:40 97.8 88 18 122/60 93 11/05/16 23:59 Nasal Cannula 2.0 Intake and Output 11/07/16 11/07/16 11/08/16 14:59 22:59 06:59 Intake Total 1280 ml 1000 ml Balance 1280 ml 1000 ml Exam Free Text/Dictation Dressing dry Incision clean, dry, and intact without redness or drainage Thigh soft 5/5 Quadriceps, Tibialis Anterior, EHL, Gastroc, Soleus, Peroneals Normal sensation Palpable DT/PT, CR <2 sec No distal edema Results Result Diagram: 11/08/16 0456 11/08/16 0456 MELANIA CRAIN PA-C Nov 08, 2016 09:16
--- NOTE | 2016-11-08 12:57 | DS ---
Date/Time of Note Date/Time of Note DATE: 11/08/16 TIME: 12:54 Discharge Summary Admission/Discharge Info Admit Date/Time Nov 05, 2016 at 09:58 Discharge Date/Time November 08, 2016 Discharge Diagnosis s/p right TKA Patient Condition: Good Procedures Right total knee arthroplasty Hospital Course This is a 81-year-old female, who was seen in clinic initially complaining of right knee pain. She had undergone conservative modalities previously and given her x-ray findings was thought she would benefit from right total knee arthroplasty. On 11/05/2016 the patient was admitted and taken to the operating room, where she underwent a right total knee arthroplasty. There were no intraoperative palpitations. The patient tolerated the procedure well. She was taken to recovery room in stable condition. Pain was well-controlled oral pain medication. She was started on aspirin and SCDs for DVT prophylaxis. She remained hemodynamically stable and neurovascularly intact throughout her hospital stay. She began physical therapy on postoperative day 1, continued to make a progress. Ultimately she was deemed stable for transfer to the [facility] on postoperative day 3. Prior to transfer, the incision was inspected and noted to be clean, dry, and intact. Dressing changes were done prior to the patient going to the [facility]. DISCHARGE INSTRUCTIONS: Patient will be transferred to the [facility] in stable condition. She is to resume a normal diet. She is weightbearing as tolerated on the right lower extremity. She will begin physical therapy at the [facility]. She will be transferred with a medication noted and is to resume all of her normal home medication. The patient is to call the office or go to emergency room for any concerns including increased redness, swelling, drainage , fever, or any concerns regarding the operation or site of incision. Home Meds Active Scripts Hydrocodone/Acetaminophen (Hydrocodon-Acetaminoph 7.5-325) 1 Each Tablet, 1 TAB PO Q4H Y for PAIN LEVEL 1-3 for 30 Days, #60 TAB Prov:MELANIA CRAIN PA-C 11/06/16 Pantoprazole* (Pantoprazole*) 40 Mg Tablet.dr, 40 MG PO BID@06,18 for 40 Days, # 40 Prov:MELANIA CRAIN PA-C 11/06/16 Pregabalin* (Lyrica*) 50 Mg Capsule, 50 MG PO BID for 30 Days, #60 CAP Prov:MELANIA CRAIN PA-C 11/06/16 Tramadol HCl (Tramadol HCl) 50 Mg Tablet, 50 MG PO Q6 for 30 Days, #60 TAB Prov:MELANIA CRAIN PA-C 11/06/16 Aspirin (Aspir-Kenna) 325 Mg Tablet.dr, 325 MG PO BID for 40 Days, #80 Prov:MELANIA CRAIN PA-C 11/06/16 Reported Medications Sertraline Hcl* (Zoloft*) 50 Mg Tablet, 50 MG PO DAILY, #30 TAB 11/05/16 Multivitamins* (Theragran*) 1 Tab Tab, 1 TAB PO DAILY, TAB 07/02/16 Docusate Sodium* (Colace*) 100 Mg Capsule, 100 MG PO BID, #60 CAP 07/02/16 Valsartan* (Diovan*) 160 Mg Tablet, 160 MG PO BID, TAB 07/02/16 Discontinued Reported Medications Hydrocodone/Acetaminophen ([place] 5-325 Tablet) 1 Each Tablet, 1 EACH PO TID Y for PAIN, TAB 11/05/16 Pregabalin* (Lyrica*) 50 Mg Capsule, 50 MG PO TID, CAP 07/02/16 Acetaminophen* (Acetaminophen*) 500 MG Extra Strength Tablet, 500 MG PO Q6 Y for PAIN AND OR ELEVATED TEMP, TAB 07/02/16 Tramadol Hcl* (Ultram*) 50 Mg Tablet, 50 MG PO Q8 Y for PAIN, TAB 07/02/16 Clonazepam* (Klonopin*) 0.5 Mg Tab, 0.5 MG PO BID Y for ANXIETY, TAB 07/02/16 Celecoxib* (Celebrex*) 200 Mg Capsule, 200 MG PO DAILY, CAP 07/02/16 Zolpidem Tartrate* (Ambien*) 5 Mg Tablet, 5 MG PO QHS Y for INSOMNIA, #30 TAB 07/02/16 Polyethylene Glycol* (Miralax*) 17 Gm Powd.pack, 17 GM PO DAILY, #30 PACKET 07/02/16 Diclofenac Sodium* (Voltaren* Gel) 1% -100 Gm Gel, 4 GM TOP QID, #1 TUB 07/02/16 Propylene Glycol-Peg 400 (Systane 0.3-0.4% Eye Drops) 0.3-0.4 % - 30 Ml Drops, 1 DROP BOTH EYES DAILY, #1 BOTTLE 07/02/16 Fesoterodine Fumarate (Toviaz) 4 Mg Tab.sr.24h, 4 MG PO DAILY, TAB 07/02/16 Dexlansoprazole (Dexilant) 60 Mg Matthew., 60 MG PO DAILY, #30 CAP 07/02/16 Follow-up Plan Follow-up in the office on 11/15/2016 Primary Care Provider Care Physician No Primary Pending Labs Laboratory Tests Test 11/08/16 04:56 Hemoglobin 10.5g/dl (12.0-16.0) Hematocrit 33.3% (37.0-47.0) Sodium Level 141mmol/L (135-144) Potassium Level 4.8mmol/L (3.5-5.1) Chloride Level 98mmol/L (97-110) Carbon Dioxide Level 33mmol/L (21-31) Anion Gap 15 (8-16) Blood Urea Nitrogen 14mg/dl (7-20) Creatinine 0.80mg/dl (0.44-1.00) Glucose Level 101mg/dl (70-220) Calcium Level 8.5mg/dl (8.4-10.2) MELANIA CRAIN PA-C Nov 08, 2016 12:57
== END 2016-11-08 14:30 | DRG 470 ==
LOC: REC 09:58 → MS1 16:36
PROVIDERS: ADMIT Orthopaedic Surgery; ATTEND Orthopaedic Surgery
PROC: 0SRC0J9 Replacement of Right Knee Joint with Synthetic Substitute, Cemented, Open Approach (ICD-10-PCS; principal; 2016-11-05 13:00)
DX: M17.11 Unilateral primary osteoarthritis, right knee (principal); F03.90 Unspecified dementia, unspecified severity, without behavioral disturbance, psychotic disturbance, mood disturbance, and anxiety; I10 Essential (primary) hypertension; E78.5 Hyperlipidemia, unspecified; E03.9 Hypothyroidism, unspecified; K21.9 Gastro-esophageal reflux disease without esophagitis; Z96.652 Presence of left artificial knee joint
CPT/HCPCS: 73560; 80048; 81001; 81003; 85014; 85018; 86850; 86900; 86901; 86920; 87081; 87086; 88304; 88311; 97110; 97116; 97162; 97166; 97530; 97535; C1776; J0690; J1100; J1170; J2175; J2250; J2405; J2710; J3010; J3370; J7120

== ENCOUNTER → 2016-11-15 | Outpatient (CLI) | payer MEDICARE, MEDICAID ==
[~2016-11-15] MED LIST changes: -ACET-141 PO; +ASPI325T32 PO; -CELE200C PO; -CLON-429 PO; -DESFLURANE 15 MIN ONE; -DEXL60CA2 PO; -DICL100G37 TOP; -FESO4TAB PO; +HYDR-3605 PO; +PANT40TA4 PO; -POLY17PO6 PO; -PROP30DR BOTH EYES; +SERT50TA PO; -TRAM-40 PO; +TRAM50TA2 PO; -ZOLP5TAB PO
--- NOTE | 2016-11-15 10:26 | PN ---
Date/Time of Note Date/Time of Note DATE: 11/15/16 TIME: 10:24 Assessment/Plan VTE Prophylaxis VTE Prophylaxis Intervention: ambulation, other Assessment/Plan Assessment/Plan Assessment: 10 days status post left total knee arthroplasty Plan: The felisa were removed today, and Steri-Strips were applied. She is to continue aspirin 325 mg twice daily for DVT prophylaxis. Additionally she is to continue physical therapy at the [facility]. She should focus on range of motion including knee extension and flexion. We will see her back in 4 weeks for repeat evaluation. She is to call the office in the meantime if she has any concerns. Subjective 24 Hr Interval Summary Free Text/Dictation The patient presents today for a follow-up evaluation on her right knee. She is 10 days status post right total knee arthroplasty. She is at the [facility]. She is doing well overall. She is having some mild pain which is controlled with pain medication. She denies any fevers or chills. She is doing physical therapy twice daily at the [facility]. She is also taking aspirin 325 mg twice daily for DVT prophylaxis. She presents today for her first postoperative evaluation. Exam/Review of Systems Exam On exam today, she is alert and oriented 4, in no acute distress. She is ambulatory with a walker but arrives in a wheelchair. Exam of the incision demonstrates to be clean, dry, and intact. There is some mild ecchymosis but no erythema or warmth noted. Felisa are in place. Range of motion is 0-95 degrees. Varus and valgus forces are stable. Homans sign is negative. There is no significant soft tissue swelling. Compartments are soft. She is neurovascularly intact distally. Imaging: X-rays done at an outside facility demonstrate the prosthesis to be in good anatomic alignment. There is no fractures or dislocations identified. MELANIA CRAIN PA-C Nov 15, 2016 10:26
== END | disposition home or self-care (01) ==
LOC: HKI 09:50
PROVIDERS: ATTEND Orthopaedic Surgery
DX: Z47.1 Aftercare following joint replacement surgery (principal); Z96.652 Presence of left artificial knee joint

== ENCOUNTER → 2018-06-29 | Outpatient (CLI) | payer MEDICARE, OTHER ==
--- NOTE | 2018-06-29 18:10 | CONS ---
Assessment/Plan Assessment/Plan Hospital Course (Demo Recall) 83-year-old female presenting to clinic today with bilateral lower extremity pain and edema. She does have some very mild instability of the right knee. Is unclear if this is new. However this seems to be a minor component of her overall pain condition. She has significant edema and lumbar radiculopathy. I recommend to her to follow-up with her PCP regarding the lower extremity edema especially given her history of hypertension. Like her to start her on physical therapy for both of her knees as well as her lower back. Also recommending and prescribed gabapentin for her radicular pain and burning. She should follow-up with Dr. Borjas regards to her knees if she is able to. Follow-up with me as needed Consultation Date/Type/Reason Admit Date/Time Date of Consultation: Jun 29, 2018 Date/Time of Note DATE: 06/29/18 TIME: 17:56 Hx of Present Illness This is an 83-year-old female who presents to clinic today for bilateral lower extremity pain and swelling. She is status post bilateral total knee arthroplasties by . The left knee was done in June 2016 and the right knee was done in October 2016. The patient saw Dr. Borjas in the immediate postoperative period but has not seen him since these new symptoms began. She denies any fevers or chills. Denies swelling of the knees. Denies any wound complications. States her lower legs are very swollen and they have been for quite some time. She also feels burning and electrical pain going down her legs starting in her lower back and buttock area. Her pain is 6/10. She does states she has weakness. Has history of back issues. This is affecting the way she can walk. She needs to use a walker at all times. The pain in the knees are diffuse and radiating down to the foot. Patient states the right total knee arthroplasty feels looser than originally felt after surgery. Patient denies any injury. Patient denies fever, chills, shortness of breath, chest pain, nausea/vomiting, constipation, diarrhea, numbness, and tingling. Past Medical History Hypertension Edema Reflux Hypothyroidism Osteoporosis Home Meds Active Scripts Hydrocodone/Acetaminophen (Hydrocodon-Acetaminoph 7.5-325) 1 Each Tablet, 1 TAB PO Q4H PRN for PAIN LEVEL 1-3 for 30 Days, #60 TAB Prov:MELANIA CRAIN PA-C 11/06/16 Pantoprazole* (Pantoprazole*) 40 Mg Tablet., 40 MG PO BID@06,18 for 40 Days, #40 Prov:MELANIA CRAIN PA-C 11/06/16 Pregabalin* (Lyrica*) 50 Mg Capsule, 50 MG PO BID for 30 Days, #60 CAP Prov:MELANIA CRAIN PA-C 11/06/16 Tramadol HCl (Tramadol HCl) 50 Mg Tablet, 50 MG PO Q6 for 30 Days, #60 TAB Prov:MELANIA CRAIN PA-C 11/06/16 Aspirin (Aspir-Kenna) 325 Mg Tablet.dr, 325 MG PO BID for 40 Days, #80 Prov:MELANIA CRAIN PA-C 11/06/16 Reported Medications Sertraline Hcl* (Zoloft*) 50 Mg Tablet, 50 MG PO DAILY, #30 TAB 11/05/16 Multivitamins* (Theragran*) 1 Tab Tab, 1 TAB PO DAILY, TAB 07/02/16 Docusate Sodium* (Colace*) 100 Mg Capsule, 100 MG PO BID, #60 CAP 07/02/16 Valsartan* (Diovan*) 160 Mg Tablet, 160 MG PO BID, TAB 07/02/16 Allergies: Coded Allergies: No Known Allergies (Verified Allergy, Unknown, 11/05/16) Past Surgical History Left total knee arthroplasty [facility] 06/2016 Right total knee arthroplasty [facility] 10/2016 Family History Significant Family History: no pertinent family hx Social History Alcohol Use: none Smoking Status: Never smoker Drug Use: none Exam/Review of Systems Exam Vitals Weight: 165 pounds Height: 5 foot Temperature: 90.3 Heart Rate: 74 Blood Pressure: 163/74 Respiratory Rate: 14 Exam General: Alert, oriented x3. No Acute Distress. Heart: Regular rate and rhythm. Lungs: No respiratory distress. No accessory muscle use. Bilateral lower Extremity: Incision well-healed. No skin breakdown, no surrounding erythema. No knee effusion. Significant bilateral lower extremity edema up to mid tibia. Sensation intact to light touch in a sural, saphenous, deep peroneal, superficial peroneal, medial and lateral plantar nerve distribution. Motor is intact, patient able to dorsiflex and plantarflex ankle and extend and flex great toe. Dorsalis Pedis pulse +2, Brisk capillary refill. Compartments are soft. Right ROM: Extension: 0 Flexion: 120 Varus/ Valgus Stability: Slight instability in extension, flexion, and throughout range of motion to valgus stress A/P Stability: Slight instability with pain Left ROM: Extension: 0 Flexion: 120 Varus/ Valgus Stability: Stable in extension, flexion, and throughout range of motion A/P Stability: Stable Gait: Slow pace. antalgic. Walker for gait aid. Imaging Imaging Xrays obtained in clinic today and personally reviewed by myself: Bilateral AP and merchant views and a dedicated lateral of the right and left knee demonstrates bilateral knees s/p TKA. Components in good position and alignment. No signs of wear, osteolysis, loosening, component failure, or fracture. No acute complications. ZANA HANSON MD Jun 29, 2018 18:08
--- NOTE | 2018-06-30 10:26 | RADRPT ---
PROCEDURE: Bilateral knee radiographs. CLINICAL INDICATION: Postop. Bilateral knee pain. TECHNIQUE: Total of 8 views. Four views of the right knee. Weight bearing. Frontal, lateral, obliq ue, and patellar view. Four views of the left knee. Weight bearing. Frontal, lateral, oblique, and p atellar view. COMPARISON: 11/01/2016. FINDINGS: There are bilateral total knee arthroplasties. This appears satisfactory with no fracture, dislocatio n, or loosening. The soft tissues are normal. There is no lytic or blastic lesion. There is no joint effusion. IMPRESSION: 1. Satisfactory postoperative appearance of both knees. RPTAT: QQ .Castro Wallace MD, MD Date Time Electronically viewed and signed by .Castro Wallace MD, on 06/30/2018 10:26 .R/
== END | disposition home or self-care (01) ==
LOC: HKI 15:41
PROVIDERS: ATTEND Orthopaedic Surgery Adult Reconstructive Orthopaedic Surgery
DX: M25.562 Pain in left knee (principal); M25.561 Pain in right knee; R22.43 Localized swelling, mass and lump, lower limb, bilateral; I10 Essential (primary) hypertension; E03.9 Hypothyroidism, unspecified; K21.9 Gastro-esophageal reflux disease without esophagitis; M81.0 Age-related osteoporosis without current pathological fracture; Z79.82 Long term (current) use of aspirin; Z96.653 Presence of artificial knee joint, bilateral
CPT/HCPCS: 73564; G0463